=== PATIENT | female | born 1930 | race Caucasian/White ===

== ENCOUNTER 2017-03-07 15:13 | Outpatient (RCR) | payer OTHER ==
[~2017-03-07 15:13] MED LIST: ASPIRIN81 MG PO; COZAAR25 MG PO; DOXYCYCLINE MO100 MG PO; HYDROXYUREA500 MG PO; KEFLEX500 MG PO; LIDOCAINE VISC 2% SOLN 15 ML UDC ONE; LOSARTAN-HCTZ1 EAC1 PO; METOPROLOL SUCC50 MG PO; MINERAL OIL/PETROLAT/GLYCERI 6OZ BTL ONE; PLAVIX75 MG PO; ULTRAM50 MG PO; UREA; VITAMIN B-121000 MCG PO
== END 2017-03-09 ==
LOC: WCC 15:13
PROVIDERS: ATTEND Podiatrist Foot & Ankle Surgery
DX: I87.332 Chronic venous hypertension (idiopathic) with ulcer and inflammation of left lower extremity (principal); L89.623 Pressure ulcer of left heel, stage 3; L97.322 Non-pressure chronic ulcer of left ankle with fat layer exposed; L97.422 Non-pressure chronic ulcer of left heel and midfoot with fat layer exposed; S91.109A Unspecified open wound of unspecified toe(s) without damage to nail, initial encounter; I10 Essential (primary) hypertension; I87.2 Venous insufficiency (chronic) (peripheral); L25.1 Unspecified contact dermatitis due to drugs in contact with skin; R21 Rash and other nonspecific skin eruption; L84 Corns and callosities; D64.9 Anemia, unspecified; I25.84 Coronary atherosclerosis due to calcified coronary lesion; W22.8XXA Striking against or struck by other objects, initial encounter

== ENCOUNTER → 2017-04-09 | Outpatient (RCR) | payer OTHER ==
[~2017-04-09] MED LIST changes: +FENTANYL CITRATE/PF 100MCG/2 ML INJ ONE
== END ==
LOC: WCC 03-12 12:29
PROVIDERS: ATTEND Podiatrist Foot & Ankle Surgery
DX: I87.332 Chronic venous hypertension (idiopathic) with ulcer and inflammation of left lower extremity (principal); L89.623 Pressure ulcer of left heel, stage 3; L97.322 Non-pressure chronic ulcer of left ankle with fat layer exposed; L97.422 Non-pressure chronic ulcer of left heel and midfoot with fat layer exposed; S81.801A Unspecified open wound, right lower leg, initial encounter; S91.109A Unspecified open wound of unspecified toe(s) without damage to nail, initial encounter; R21 Rash and other nonspecific skin eruption; I87.2 Venous insufficiency (chronic) (peripheral); L25.1 Unspecified contact dermatitis due to drugs in contact with skin; L84 Corns and callosities; D64.9 Anemia, unspecified; I10 Essential (primary) hypertension; I25.84 Coronary atherosclerosis due to calcified coronary lesion; W22.8XXA Striking against or struck by other objects, initial encounter
CPT/HCPCS: 11042; 29581 ×2; G0463

== ENCOUNTER → 2017-05-07 | Outpatient (RCR) | payer OTHER ==
[~2017-05-07] MED LIST changes: -FENTANYL CITRATE/PF 100MCG/2 ML INJ ONE; +LIDOCAINE/PRILOCAINE 2.5-2.5% KIT ONE; -MINERAL OIL/PETROLAT/GLYCERI 6OZ BTL ONE
== END ==
LOC: WCC 04-16 12:26
PROVIDERS: ATTEND Podiatrist Foot & Ankle Surgery
DX: L89.623 Pressure ulcer of left heel, stage 3 (principal); I87.332 Chronic venous hypertension (idiopathic) with ulcer and inflammation of left lower extremity; L97.322 Non-pressure chronic ulcer of left ankle with fat layer exposed; S91.109A Unspecified open wound of unspecified toe(s) without damage to nail, initial encounter; I87.2 Venous insufficiency (chronic) (peripheral); L25.1 Unspecified contact dermatitis due to drugs in contact with skin; L84 Corns and callosities; R21 Rash and other nonspecific skin eruption; D64.9 Anemia, unspecified; I10 Essential (primary) hypertension; I25.84 Coronary atherosclerosis due to calcified coronary lesion; W22.8XXA Striking against or struck by other objects, initial encounter

== ENCOUNTER 2017-05-09 12:37 | Observation (INO) | payer OTHER ==
[~2017-05-09] VITALS: Ht 165.1 cm; Wt 54.5 kg
[~2017-05-09 12:37] MED LIST changes: -LIDOCAINE VISC 2% SOLN 15 ML UDC ONE; -LIDOCAINE/PRILOCAINE 2.5-2.5% KIT ONE
--- OUTSIDE RECORDS SUMMARY | 2017-05-09 12:40 | XMS REPORT | Clinical Summary ---
Author Author [facility] Organization [facility] Address Unknown Phone Unavailable Care Team Providers Care Mobile Home Technician Name Role Phone Pernell Painting MD PCP Allergies Active Allergy Reactions Severity Noted Date Comments Cefepime Other (See Comments) Medium 04/28/2016 UNKNOWN Ciprofloxacin Swelling 04/28/2016 Legs swelling Vancomycin 04/28/2016 Current Medications Prescription Sig. Disp. Refills Start End Date Status Date clopidogrel (PLAVIX) 75 Take 75 mg by mouth Active mg tablet nightly. hydroxyurea (HYDREA) 500 Take 1,000 mg by mouth Active mg capsule every other day. Take 1 capsule 1 day and 2 capsules the other. metoprolol succinate XL Take 50 mg by mouth 2 Active (TOPROL-XL) 50 mg 24 hr (two) times a day. tablet traMADol (ULTRAM) 50 mg Take 50 mg by mouth every Active tablet 6 (six) hours as needed for moderate pain. losartan-hydrochlorothiaz Take 1 tablet by mouth Active brian (HYZAAR) 100-25 mg nightly. per tablet hydroxyurea (HYDREA) 500 Take 500 mg by mouth Active mg capsule every other day. cyanocobalamin 1000 MCG Take 1,000 mcg by mouth 02/06/20 Discontin tablet daily. 17 ued losartan (COZAAR) 100 MG Take 100 mg by mouth 01/04/20 Discontin tablet daily. 17 ued doxycycline (VIBRAMYCIN) Take 100 mg by mouth 2 01/08/20 Discontin 100 MG capsule (two) times a day. 17 ued silver sulfadiazine Apply 1 g topically daily 25 g 0 02/12/20 (SILVADENE, SSD) 1 % for 7 days. 17 17 cream Active Problems Problem Noted Date PVD (peripheral vascular disease) 02/10/2017 Ulcer of foot 02/10/2017 Overview: pt attends wound clinic and has left foot wrapped with kerlix Hypertension 02/10/2017 Preoperative testing 02/07/2017 Encounters Date Type Specialty Care Team Description 02/07/2017 [facility] General Surgery Earnest De La Cruz MD Preoperative testing - Encounter Anthony Aguilar MD 02/10/2017 02/07/2017 Procedure Pass General Surgery 02/07/2017 Surgery General Surgery Earnest De La Cruz MD CREATION, BYPASS, ARTERIAL, FEMORAL-POPLITEAL LEFT 02/06/2017 Anesthesia General Surgery Yanci Mantilla MD Event 02/05/2017 [facility] Radiology Earnest De La Cruz MD Encounter 02/05/2017 Pre-Admit Pre-Admission Testing Earnest De La Cruz MD Preoperative testing Testing (Primary Dx) Appointment 01/07/2017 [facility] Radiology Earnest De La Cruz MD PVD ( peripheral vascular Encounter disease); Preop testing 01/07/2017 Ancillary Radiology Earnest De La Cruz MD PVD ( peripheral vascular Orders disease) 01/07/2017 Ancillary Access Earnest De La Cruz MD PVD (peripheral vascular Orders disease) 01/03/2017 [facility] Radiology Earnest De La Cruz MD Encounter 01/03/2017 Pre-Admit Pre-Admission Testing Earnest De La Cruz MD Preop testing (Primary Testing Dx) Appointment 10/31/2016 Transcribe Access Earnest De La Cruz MD PVD (peripheral vascular Orders disease) (Primary Dx) after 05/08/2016 Family History Medical History Relation Name Comments No Known Problems Father No Known Problems Mother Relation Name Status Comments Father Mother Social History Tobacco Use Types Packs/Day Years Used Date Former Smoker Cigarettes 1 Smokeless Tobacco: Never Used Comments: PT. STATES SHE STOPPED SMOKING 40 YEARS AGO. Alcohol Use Drinks/Week oz/Week Comments No Sex Assigned at Date Recorded Not on file Last Filed Vital Signs Vital Sign Reading Time Taken Blood Pressure 133/61 02/10/2017 7:43 AM CASTER HELPER Pulse 79 02/10/2017 7:43 AM CASTER HELPER Temperature 36.6 C (97.8 F) 02/10/2017 7:43 AM CASTER HELPER Respiratory Rate 18 02/10/2017 7:43 AM CASTER HELPER Oxygen Saturation 93% 02/10/2017 7:43 AM CASTER HELPER Inhaled Oxygen - - Concentration Weight 56.1 kg (123 lb 11.2 oz) 02/07/2017 12:00 PM CASTER HELPER Height 167.6 cm (5' 6") 02/07/2017 6:52 AM CASTER HELPER Body Mass Index 19.97 02/07/2017 12:00 PM CASTER HELPER Plan of Treatment Health Maintenance Due Date Last Done Comments ZOSTER VACCINE 1989 PNEUMOCOCCAL 1994 POLYSACCHARIDE VACCINE AGE 65 AND OVER PNEUMOCOCCAL-13 1994 INFLUENZA VACCINE 10/08/2016 Implants Implanted Type Area Test Facility Engineer Device Expiration Model / Identifier Date Serial / Lot Device Vasclr Clsr Baln Cath 10ml Cardiovasc N/A: N/A ACCESS CLOSURE 02/06/2018 [id number] / Lkng Syr 5fr [employer] / [id number] Implants Implanted: Qty: 1 on 04/29/2016 Device Vasclr Clsr Baln Cath 10ml Cardiovasc N/A: N/A ACCESS CLOSURE [id number] / Lkng Syr 5fr [employer] / [id number] Implants Implanted: 01/07/2017 (Quantity not on file) [employer] Periph [id number] - Vascular N/A: N/A BARD PERIPHERAL 2019 [id number] / [id number] Graft VASCULAR / Implanted: Qty: 1 on 02/07/2017 by [id number] Earnest De La Cruz MD [employer] Carboflo Str [id number] - Vascular Left: BARD PERIPHERAL 2018 [id number] / [id number] Graft Artery, VASCULAR / Implanted: Qty: 1 on 02/07/2017 by Femoral [id number] Earnest De La Cruz MD Procedures Procedure Name Priority Date/Time Associated Diagnosis Comments OK AN ELECTIVE Routine 02/07/2017 ENDOTRACHEAL AIRWAY 11:20 AM CASTER HELPER Procedure Note - Demetris Cope CRNA - 02/07/2017 9:06 AM CASTER HELPER Airway Date/Time: 02/07/2017 8:29 AM Performed by: DEMETRIS COPE Authorized by: YANCI MANTILLA Location: OR Urgency: Elective Difficult Airway: No Anesthesio logist: YANCI MANTILLA/C CHAITANYA/AA: DEMETRIS COPE Performed by: resident/C CHAITANYA and resident/C CHAITANYA/HIRO Preoxygena jessica with 100% O2: Yes C-spine Precaution s Maintained Throughout : Yes Mask Ventilatio n: Easy mask Final Airway Type: Endotrache al airway Final Endotrache al Airway: ETT Cuffed: Yes Technique Used: Direct laryngosco py Insertion Site: Oral Blade Type: Lim Laryngosco pe Blade/Vide olaryngosc ope Blade Size: 2 ETT Size (mm): 7.0 Cuff at minimum occlusion pressure: Yes Measured from: Lips ETT to Lips (cm): 21 Placement Verified by: CO2 detection, direct visualizat ion and equal breath sounds Laryngosco pic view: Grade IIa - partial view of glottis Rapid Sequence Induction (RSI): No Modified RSI: No Number of Attempts at Approach: 1 Teeth intact, atraumatic intubation ARTERIAL LINE Routine 02/07/2017 10:40 AM CASTER HELPER Procedure Note - Demetris Cope CRNA - 02/07/2017 10:39 AM CASTER HELPER Arterial line Performed by: DEMETRIS COPE Authorized by: YANCI MANTILLA Patient Location: OR Start Time: 02/07/2017 8:35 AM End Time: 02/07/2017 8:40 AM Staff: /Claudio TAVARES/AA: DEMETRIS COPE Performed by: /Claudio TAVARES/HIRO Pre-proced ure: patient identified , IV checked, site and side verified, risks and benefits discussed, procedure verified, surgical consent complete, patient position confirmed, monitors and equipment checked and pre-op evaluation complete MSBT: antiseptic used, all elements of maximal sterile barrier technique followed, hand hygiene performed, cap/gown used by other personnel and solutions labeled Indication s: Indication s: hemodynami c monitoring Anesthesia : Anesthesia : General Procedure Details: Arterial Line placement: Placed post induction Line placement site: Radial Line placement side: Right Arterial line gauge: 20 G Number of attempts: 2 Ultrasound guidance used: No Post-proce dure: Post-proce dure: Sterile dressing applied Post procedure circulatio n, sensation, movement: Normal Patient tolerance: Patient tolerated the procedure well with no immediate complicati ons CREATION, BYPASS, 02/07/2017 PVD ARTERIAL, 8:15 AM CASTER HELPER FEMORAL-POPLITEAL LEFT Special Needs Needs: CELL SAVER/ ASSISTANTR EGULAR GRAFTSPOKE WITH CHINTAN HALL - BW after 05/08/2016 Results * Estimated GFR (02/08/2017 4:20 AM) Only the most recent of 3 results within the time period is included. Component Value Ref Range GFR Non Af Amer 79 mL/min/1.73 m2 GFR Af Amer >90 mL/min/1.73 m2 Comment: Chronic kidney disease: <60 mL/min/1.73m2 Kidney failure: <15 mL/min/1.73m2 The estimated GFR is calculated from the IDMS-traceable Modification of Diet in Renal Disease Equation. The accuracy of the calculation is poor when the creatinine is normal. Calculated values >90 mL/min/1.73m2 are not reported. This equation has not been validated in children (<18 years), women, the elderly (>70 years), or ethnic groups other than Caucasians and Americans. Specimen Performing Laboratory Plasma specimen [facility] DEPARTMENT OF PATHOLOGY AND GENOMIC MEDICINE [address] [place] [address] * CBC with platelet and differential (02/08/2017 4:20 AM) Only the most recent of 3 results within the time period is included. Component Value Ref Range WBC 5.31 4.50 - 11.00 k/uL RBC 2.25 (L) 4.20 - 5.50 m/uL HGB 9.4 (L) 12.0 - 16.0 g/dL HCT 27.6 (L) 37.0 - 47.0 % MCV 122.7 (H) 82.0 - 100.0 fL MCH 41.8 (H) 27.0 - 34.0 pg MCHC 34.1 31.0 - 37.0 g/dL RDW - SD 61.0 (H) 37.0 - 55.0 fL MPV 8.9 8.8 - 13.2 fL Platelet count 325 150 - 400 k/uL Nucleated RBC 0.00 /100 WBC Neutrophils 78.1 (H) 39.0 - 69.0 % Lymphocytes 11.5 (L) 25.0 - 45.0 % Monocytes 9.0 0.0 - 10.0 % Eosinophils 0.6 0.0 - 5.0 % Basophils 0.2 0.0 - 1.0 % Immature granulocytes 0.6Comment: "Immature granulocytes" 0.0 - 1.0 % (promyelocytes, myelocytes, metamyelocytes) Specimen Performing Laboratory Blood [facility] DEPARTMENT OF PATHOLOGY AND GENOMIC MEDICINE [address] [place] [address] * Basic metabolic panel (02/08/2017 4:20 AM) Only the most recent of 3 results within the time period is included. Component Value Ref Range Sodium 134 (L) 135 - 148 mEq/L Potassium 3.7 3.5 - 5.0 mEq/L Chloride 94 (L) 98 - 112 mEq/L CO2 31 24 - 31 mEq/L Anion gap 9 7 - 15 mEq/L Comment: Starting from June , anion gap calculation no longer incorporates potassium. Please note the change. BUN 17 8 - 23 mg/dL Creatinine 0.7 0.5 - 0.9 mg/dL Glucose 128 (H) 65 - 99 mg/dL Calcium 8.7 (L) 8.8 - 10.2 mg/dL Specimen Performing Laboratory Plasma specimen [facility] DEPARTMENT OF PATHOLOGY AND GENOMIC [facility] [address] [place] [address] * XR Ankle 3+ Vw Left (02/07/2017 9:09 PM) Specimen Performing Laboratory [facility] [address] [place] [address] Addenda Addendum by Mati Ferrari MD on 02/08/2017 5:15 PM ADDENDUM #1 Under impression, the first sentence should read:" The bones are moderately osteopenic" Narrative EXAMINATION:XR ANKLE 3VW LEFT CLINICAL HISTORY:ANKLE PAINNO XRAY COMPARISON:None. IMPRESSION: Lungs are moderately osteopenic. There is no evidence of fracture or dislocation. [facility]-[id number] Procedure Note Interface, Radiology Results Incoming - 02/07/2017 9:16 PM CASTER HELPER EXAMINATION: XR ANKLE 3 VW LEFT CLINICAL HISTORY: ANKLE PAIN NO XRAY COMPARISON: None. IMPRESSION: Lungs are moderately osteopenic. There is no evidence of fracture or dislocation. [facility]-[id number] * XR Chest 1 Vw Portable (02/07/2017 9:09 PM) Specimen Performing Laboratory [facility] [address] [place] [address] Narrative EXAMINATION:XR CHEST 1 VW PORTABLE CLINICAL HISTORY:COPD Emphysema COMPARISON:To previous study from 02/05/2017 IMPRESSION: The heart is normal in appearance and the lungs are hyperinflated without evidence of congestion or consolidation. Mild thoracal lumbar scoliosis is present. [facility]-[id number] Procedure Note Interface, Radiology Results Incoming - 02/07/2017 9:14 PM CASTER HELPER EXAMINATION: XR CHEST 1 VW PORTABLE CLINICAL HISTORY: COPD Emphysema COMPARISON: To previous study from 02/05/2017 IMPRESSION: The heart is normal in appearance and the lungs are hyperinflated without evidence of congestion or consolidation. Mild thoracal lumbar scoliosis is present. [facility]-[id number] * POC glucose (02/07/2017 8:29 PM) Component Value Ref Range POC glucose 181 (H) 65 - 99 mg/dL Comment: Meter ID: [id number] Graphic Production Artist: Kareem Soria Specimen Performing Laboratory [facility] DEPARTMENT OF PATHOLOGY AND GENOMIC MEDICINE [id number] [place] [address] [place] [address] * OR [place] > I Hour (02/07/2017 10:45 AM) Specimen Performing Laboratory [facility] [address] [place] [address] Narrative EXAMINATION:OR [place] 1 HOUR C-arm fluoroscopy was requested in OR.FLUORO TIME 0:36 IMPRESSION: Separate operative report will be issued by the physician performing the procedure. [id number] Procedure Note Interface, Radiology Results Incoming - 02/07/2017 11:37 AM CASTER HELPER EXAMINATION: OR FL 1 HOUR C-arm fluoroscopy was requested in OR. FLUORO TIME 0:36 IMPRESSION: Separate operative report will be issued by the physician performing the procedure. [id number] * XR Chest 2 Vw (02/05/2017 8:10 AM) Only the most recent of 2 results within the time period is included. Specimen Performing Laboratory [facility] [address] [place] [address] Narrative EXAMINATION:XR CHEST 2 VW CLINICAL HISTORY:Z01.818 Encounter for other preprocedural examination, PREOP COMPARISON:January 03, 2017 FINDINGS: Heart size appears normal. The mediastinum is unremarkable. The lungs appear clear. There is mild scoliosis of the thoracic spine convex to the right. IMPRESSION: No acute findings are visualized [id number] Procedure Note Interface, Radiology Results Incoming - 02/05/2017 8:48 AM CASTER HELPER EXAMINATION: XR CHEST 2 VW CLINICAL HISTORY: Z01.818 Encounter for other preprocedural examination, PREOP COMPARISON: January 03, 2017 FINDINGS: Heart size appears normal. The mediastinum is unremarkable. The lungs appear clear. There is mild scoliosis of the thoracic spine convex to the right. IMPRESSION: No acute findings are visualized [id number] * Partial thromboplastin time, activated (02/05/2017 7:09 AM) Only the most recent of 2 results within the time period is included. Component Value Ref Range PTT 38.3 (H) 23.0 - 36.0 sec Comment: PTT therapeutic range for unfractionated heparin is 61.0-112.0 seconds which corresponds to Anti-Xa 0.3-0.7 U/ml. Specimen Performing Laboratory Blood [facility] DEPARTMENT OF PATHOLOGY AND GENOMIC MEDICINE [address] [place] [address] [place] [address] * Prothrombin time with INR (02/05/2017 7:09 AM) Only the most recent of 2 results within the time period is included. Component Value Ref Range Prothrombin time 14.5 12.0 - 15.0 sec INR 1.1 Comment: The International Normalized Ratio (INR) is a therapeutic monitoring tool for patients who are stable on oral anticoagulant therapy. An INR of 2.0-3.0 is suggested for deep vein thrombosis/pulmonary embolism. Specimen Performing Laboratory Blood [facility] DEPARTMENT OF PATHOLOGY AND GENOMIC MEDICINE [id number] [place] [address] [place] [address] * Type and screen (02/05/2017 7:09 AM) Only the most recent of 2 results within the time period is included. Component Value Ref Range ABO grouping O Rh type POS Antibody screen NEG Specimen Performing Laboratory Blood [facility] DEPARTMENT OF PATHOLOGY AND [facility] MEDICINE [address] [place] [address] [place] [address] * IR Angiogram Extremity Left (01/07/2017 10:59 AM) Specimen Performing Laboratory [facility] [address] [place] [address] Narrative PROCEDURE:IR ANGIOGRAM EXTREMITY LEFT This exam was performed in the Radiology department. Fluoro time:3 minutes 27 seconds. IMPRESSION: A complete separate report will be issued in operative notes by the performing physician. [id number] Procedure Note Hm Interface, Radiology Results Incoming - 01/08/2017 11:32 AM CDT PROCEDURE: IR ANGIOGRAM EXTREMITY LEFT This exam was performed in the Radiology department. Fluoro time: 3 minutes 27 seconds. IMPRESSION: A complete separate report will be issued in operative notes by the performing physician. [id number] * US Guided Vascular Access (01/07/2017 10:59 AM) Specimen Performing Laboratory [facility] [address] [place] [address] Narrative PROCEDURE:US GUIDED VASCULAR ACCESS This exam was performed in the Radiology department. IMPRESSION: A complete separate report will be issued in operative notes by the performing physician. [id number] Procedure Note Hm Interface, Radiology Results Incoming - 01/08/2017 11:32 AM CDT PROCEDURE: US GUIDED VASCULAR ACCESS This exam was performed in the Radiology department. IMPRESSION: A complete separate report will be issued in operative notes by the performing physician. [id number] * ECG 12 lead (01/03/2017 8:03 AM) Component Value Ref Range Ventricular rate 61 Atrial rate 61 OK interval 188 QRSD interval 90 QT interval 430 QTC interval 432 P axis 1 88 QRS axis 1 65 T wave axis 70 EKG impression Normal sinus rhythm-Normal ECG-In automated comparison with ECG of -APR-2016 17:15,-No significant change was found- Specimen Performing Laboratory [facility] [address] [place] [address] after 05/08/2016 Insurance Payer Benefit Subscriber ID Type Phone Address Plan / Group [employer] TEX[employer] xxxxxxxxx O [facility]
--- OUTSIDE RECORDS SUMMARY | 2017-05-09 12:41 | XMS REPORT ---
Author [facility] Address Unknown Phone Unavailable Care Team Providers Care Slot Attendant Name Role Phone MAYA WU Unavailable Unavailable Problems This patient has no known problems. Allergies, Adverse Reactions, Alerts This patient has no known allergies or adverse reactions. Medications This patient has no known medications. Results Test Description Test Time Test Comments Text Results Atomic Results Result Comments CHEST 2 VIEWS [facility] [address] [address] Patient Name: CHRISTOS MCCURDY MR #: [id number] : 1930 Age/Sex: 87/F Req # : [id number] [facility] Physician: Ordered by: MAYA WU DP Report # : [id number] Location: OR Room/Bed: Procedure: [id number] DX/CHEST 2 VIEWS Exam Date: 02/10/17 Exam Time : 1805 REPORT STATUS: Signed PROCEDURE: Frontal and lateral views of the chest. COMPARISON: Chest 2 views 08/12/2016. INDICATIONS: pre=- op FINDINGS: Lines/tubes: None. Lungs: The lungs are well inflated and clear. There is no evidence of pneumonia or pulmonary edema. Pleura: There is no pleural effusion or pneumothorax. Heart and mediastinum: The heart and the mediastinum are normal. Atherosclerotic calcifications. Bones: No acute bony abnormality. Degenerative changes of the thoracic spine. IMPRESSION: No acute radiographic abnormality. Dictated by: Cordelia Hassan M.D. on 02/10/2017 at 18:37 Electronically approved by: Cordelia Hassan M.D. on 02/10/2017 at 18:37 Dictated By: CORDELIA HASSAN MD 36 Transcribed By: TREVIN on 02/10/171836 COPY TO: MAYA WU DPM
--- OUTSIDE RECORDS SUMMARY | 2017-05-09 12:41 | XMS REPORT | Continuity of Care Document ---
Author Author [facility] Organization [facility] Address [address] [place] [address] Phone Unavailable Care Team Providers Care Rail Car Unloader Name Role Phone DILCIA COLUNGA MD PCP Insurance Providers Guarantor Klaudia Mccurdy Address [address] [place] [address] Email PTDECLINED Payer [facility] Plus Policy Number [id number] Subscriber's Name Klaudia Mccurdy Relationship 18 Self / Same As Patient Group Number [id number] Group Name [facility] - Medicare Advantage Divis Effective Date 17 Advance Directives Directive Response Recorded Date/Time Does the patient have an advance directive? No 12/18/16 2:39pm If yes, is advance directive on file with [facility]? No 08/18/13 3:15am If not on file with [facility] will patient provide a copy? No 08/18/13 3:15am Do you have a Directive to Physician? No 04/15/17 2:15pm Do you have a Medical Power of Dope Mixer? No 04/15/17 2:15pm Do you have an out of hospital Do Not Resuscitate Order? No 04/15/17 2:15pm Do you have any special needs we should be aware of? No 04/15/17 2:15pm Do you have a support person here with you today? No 04/15/17 2:15pm Did patient receive Notice of Privacy Practices? Yes 04/15/17 2:15pm Did patient receive patient rights and responsibilities? Yes 04/15/17 2:15pm Problems No problem information available. Medications Current Home Medications Medication Dose Units Route Directions Days Qty Instructions Start Date Clopidogrel Bisulfate (Plavix) 75 Mg Tablet 75 Mg Oral Daily 30 Tab Hydroxyurea 500 Mg Capsule 500 Mg Oral Daily Losartan/Hydrochlorothiazide (Losartan-Hctz 100-25 Mg Tab) 1 Each Tablet Oral Bedtime Metoprolol Succinate 50 Mg Tab.er.24h 50 Mg Oral Twice A Day Tramadol Hcl (Ultram) 50 Mg Tablet 50 Mg Oral Every 6 Hours as needed for Pain Past Home Medications Medication Directions Ordered Status Aspirin 81 Mg Tab.chew, 81 Mg Oral Daily Discontinued Cephalexin Monohydrate (Keflex) 500 Mg Capsule, 500 Mg Oral Twice A Day Discontinued Cyanocobalamin (Vitamin B-12) 1,000 Mcg Tab, 5000 Mcg Oral Daily Discontinued Doxycycline Monohydrate 100 Mg Capsule, 100 Mg Oral Twice A Day Discontinued Losartan Potassium (Cozaar) 25 Mg Tablet, 50 Mg Oral Every 12 Hours Discontinued Urea (Urea 40) 15 Ml Gel..ml., Discontinued Social History Social History Problem Response Recorded Date/Time Onset Date Status Hx Psychiatric Problems No 12/18/2016 2:39pm Not Applicable Not Applicable Hx Eating Disorder No 12/18/2016 2:39pm Not Applicable Not Applicable Hx Substance Use Disorder No 12/18/2016 2:39pm Not Applicable Not Applicable Hx Depression No 12/18/2016 2:39pm Not Applicable Not Applicable Hx Alcohol Use No 12/18/2016 2:39pm Not Applicable Not Applicable Hx Substance Use Treatment No 12/18/2016 2:39pm Not Applicable Not Applicable Hx Physical Abuse No 12/18/2016 2:39pm Not Applicable Not Applicable Hospital Discharge Instructions No hospital discharge instruction information available. Plan of Care Prescriptions See Medication Section Functional Status No functional status information available. Allergies, Adverse Reactions, Alerts Allergen Type Severity Reaction Status Last Updated Erythromycin base Allergy Unknown Active 08/13/16 Sulfamethoxazole Allergy Unknown Active 08/13/16 Trimethoprim Allergy Unknown Active 08/13/16 Vancomycin Allergy Unknown Active 08/13/16 Immunizations No immunization information available. Vital Signs Acute Vital Signs Vital Response Date/Time Temperature (Fahrenheit) 97.8 degrees F (97.6 - 99.5) 12/24/2016 5:12am Pulse Pulse Rate (adult) 61 bpm (60 - 90) 12/24/2016 5:12am Respiratory Rate 17 bpm (12 - 24) 12/24/2016 5:12am Blood Pressure 145/69 mm Hg 12/24/2016 5:12am Results Laboratory Results Test Name Result Units Flags Reference Collection Date/Time Result Date/ Time Comments Erythrocyte Sedimentation Rate 101 mm/hr H 0-20 12/18/2016 5:45pm 2016 7:10pm Prothrombin Time 15.5 seconds H 11.9-14.5 12/23/2016 11:09am 12/23/2016 11:31am Prothromb Time International Ratio 1.17 12/23/2016 11:09am 2016 11:31am Oral Anticoagulant Therapy INR Values: 1. Low Intensity Therapy 1.5 - 2.0 2. Moderate Intensity Therapy 2.0 - 3.0 3. High Intensity Therapy(1) 2.5 - 3.5 4. High Intensity Therapy(2) 3.0 - 4.0 5. Panic Value INR > 5.0 Activated Partial Thromboplast Time 33.6 seconds 23.8-35.5 12/23/2016 11 :09am 12/23/2016 11:31am Sodium Level 137 mmol/L 136-145 12/22/2016 6:2112/22/2016 7:11am Potassium Level 3.9 mmol/L 3.5-5.1 12/22/2016 6:2112/22/2016 7:11am Chloride Level 101 mmol/L 98-107 12/22/2016 6:2112/22/2016 7:11am Carbon Dioxide Level 29 mmol/L 22-12/22/2016 6:2112/22/2016 7: 11am Anion Gap 10.9 mmol/L 8-12/22/2016 6:2112/22/2016 7:11am Blood Urea Nitrogen 10 mg/dL 7-12/22/2016 6:2112/22/2016 7:11am Creatinine 0.79 mg/dL 0.57-1.11 12/22/2016 6:21am 12/22/2016 7:11am BUN/Creatinine Ratio 13 6-25 12/22/2016 6:21am 12/22/2016 7:11am Estimat Glomerular Filtration Rate > 60 ML/MIN 60- 12/22/2016 6:21 7:11am Ranges were taken from the National Kidney Disease Education Program and the National Kidney Foundation literature. Reference ranges: 60 or greater: Normal 16-59 (for 3 consecutive months): Chronic kidney disease 15 or less: Kidney failure Glucose Level 116 mg/dL 74-118 12/22/2016 6:2112/22/2016 7:11am Calcium Level 9.0 mg/dL 8.4-10.2 12/22/2016 6:21am 12/22/2016 7:11am White Blood Count 8.05 x10e3/uL 4.8-10.8 02/10/2017 4:58pm 02/10/2017 5 :13pm Red Blood Count 2.51 x10e6/uL L 3.6-5.1 02/10/2017 4:58pm 02/10/2017 5: 13pm Hemoglobin 10.4 g/dL L 12.0-16.0 02/10/2017 4:58pm 02/10/2017 5:13pm Hematocrit 31.0 % L 34.2-44.1 02/10/2017 4:58pm 02/10/2017 5:13pm Mean Corpuscular Volume 123.5 fL H 81-99 02/10/2017 4:58pm 02/10/2017 5: 13pm Mean Corpuscular Hemoglobin 41.4 pg H 28-32 02/10/2017 4:58pm 2016 5:13pm Mean Corpuscular Hemoglobin Concent 33.5 g/dL 31-35 02/10/2017 4:58pm 02/10/2017 5:13pm Red Cell Distribution Width 13.2 % 11.7-14.4 02/10/2017 4:58pm 2016 5:13pm Platelet Count 398 x10e3/uL H 140-360 02/10/2017 4:58pm 02/10/2017 5: 13pm Neutrophils (%) (Auto) 76.9 % 38.7-80.0 02/10/2017 4:58pm 02/10/2017 5: 13pm Lymphocytes (%) (Auto) 10.3 % L 18.0-39.1 02/10/2017 4:58pm 02/10/2017 5 :13pm Monocytes (%) (Auto) 9.6 % 4.4-11.3 02/10/2017 4:58pm 02/10/2017 5: 13pm Eosinophils (%) (Auto) 2.1 % 0.0-6.0 02/10/2017 4:58pm 02/10/2017 5: 13pm Basophils (%) (Auto) 0.4 % 0.0-1.0 02/10/2017 4:58pm 02/10/2017 5:13pm IM GRANULOCYTES % 0.7 % 0.0-1.0 02/10/2017 4:58pm 02/10/2017 5:13pm Neutrophils # (Auto) 6.2 2.1-6.9 02/10/2017 4:58pm 02/10/2017 5:13pm Lymphocytes # (Auto) 0.8 L 1.0-3.2 02/10/2017 4:58pm 02/10/2017 5: 13pm Monocytes # (Auto) 0.8 0.2-0.8 02/10/2017 4:58pm 02/10/2017 5:13pm Eosinophils # (Auto) 0.2 0.0-0.4 02/10/2017 4:58pm 02/10/2017 5:13pm Basophils # (Auto) 0.0 0.0-0.1 02/10/2017 4:58pm 02/10/2017 5:13pm Absolute Immature Granulocyte (auto 0.06 x10e3/uL 0-0.1 02/10/2017 4: 58pm 02/10/2017 5:13pm Procedures Procedure Status Date Provider(s) ALISON BONE 20 SQ CM/< Completed 08/13/16 MAYA UW DPM SKIN SUB GRAFT FACE/NK/HF/G Completed 08/13/16 MAYA WU DPM ALISON BONE 20 SQ CM/< Completed 02/11/17 MAYA WU DPM SKIN SUB GRAFT TRNK/ARM/LEG Completed 02/11/17 MAYA WU DPM X-ray of chest, two views Active 08/12/16 MAYA WU DPM X-ray of chest, two views Active 02/10/17 MAYA WU DPM Encounters Encounter Location Arrival/Admit Date Discharge/Depart Date Attending Provider Discharged [facility] 05/07/17 12:00pm 11:59pm MAYA WU DPM Discharged [facility] 03/12/17 12:29pm 11:59pm MAYA WU DPM Discharged [facility] 02/19/17 12:00pm 11:59pm MAYA WU DPM Registered Surgical Day Care [facility] 02/11/17 5:36am MAYA WU DPM Discharged [facility] 01/08/17 12:25pm 11:59pm MAYA WU DPM Discharged Inpatient [facility] 12/18/16 1:33pm 12/24/16 11:30am CORDELIA BARCENAS MD Discharged [facility] 12/18/16 11:50am 11:59pm MAYA WU DPM Discharged [facility] 11/13/16 1:33pm 12/07/16 11:59pm MAYA WU DPM Discharged [facility] 10/09/16 12:51pm 11:59pm MAYA WU DPM Discharged [facility] 09/11/16 12:01pm 11:59pm MAYA WU DPM Discharged [facility]ring [facility] 08/14/16 12:00pm 11:59pm MAYA WU DPM Registered Surgical Day [facility] 08/13/16 7:25am MAYA WU DPM Discharged [facility] 07/10/16 12:02pm 11:59pm MAYA WU DPM
[2017-05-09 15:31] LABS: BASOPHILS % 0.7 % (0.0-1.0); EOSINOPHILS # (AUTO) 0.1 (0.0-0.4); EOSINOPHILS % 1.5 % (0.0-6.0); HEMATOCRIT 35.3 % (34.2-44.1); HEMOGLOBIN 11.8 g/dL (12.0-16.0); LYMPHOCYTES # (AUTO) 0.9 (1.0-3.2); LYMPHOCYTES % 19.5 % (18.0-39.1); MEAN CORPUSCULAR HGB CONC 33.4 g/dL (31-35); MEAN CORPUSCULAR VOLUME 119.7 fL (81-99); MONOCYTES # (AUTO) 0.3 (0.2-0.8); MONOCYTES % 7.5 % (4.4-11.3); NEUTROPHILS # (AUTO) 3.2 (2.1-6.9); NEUTROPHILS % 70.1 % (38.7-80.0); PLATELET COUNT 291 x10e3/uL (140-360); RED BLOOD COUNT 2.95 x10e6/uL (3.6-5.1); RED CELL DISTRIBUTION WIDTH 15.6 % (11.7-14.4)
[2017-05-09 15:34] LABS: BILIRUBIN,URINE NEGATIVE (NEGATIVE); CLARITY,URINE CLEAR (CLEAR); COLOR,URINE YELLOW (YELLOW); KETONES,URINE NEGATIVE (NEGATIVE); LEUKOCYTE ESTERASE ,URINE 1+ (NEGATIVE); NITRITE,URINE NEGATIVE (NEGATIVE); PROTEIN,URINE DIPSTICK NEGATIVE (NEGATIVE); URINE UROBILINOGEN 0.2 mg/dL (0.2 - 1)
[2017-05-09 15:53] LABS: ALANINE AMINOTRANSFERASE 15 IU/L (0-55); ALBUMIN 3.7 g/dL (3.5-5.0); ALBUMIN/GLOBULIN RATIO 0.9 (0.8-2.0); ALKALINE PHOSPHATASE 93 IU/L (40-150); ANION GAP 14.2 mmol/L (8-16); BLOOD UREA NITROGEN 27 mg/dL (7-26); BUN/CREATININE RATIO 31 (6-25); CALCIUM 9.5 mg/dL (8.4-10.2); CARBON DIOXIDE 31 mmol/L (22-29); CHLORIDE 98 mmol/L (98-107); CREATININE, SERUM 0.88 mg/dL (0.57-1.11); EST GLOMERULAR FILTRATION RATE > 60 ML/MIN (60-); GLUCOSE 89 mg/dL (74-118); POTASSIUM 3.2 mmol/L (3.5-5.1); SODIUM 140 mmol/L (136-145)
[2017-05-09 16:03] LABS: RBC,URINE 0-5 /HPF (0-5); WBC,URINE (MAN) 0-5 /HPF (0-5)
[2017-05-09 16:04] LABS: EPITHELIAL CELLS,URINE MODERATE /LPF
[2017-05-09 19:59] LABS: INR 1.1; PROTHROMBIN TIME 13.4 seconds (11.9-14.5)
[2017-05-09 20:00] LABS: PARTIAL THROMBOPLASTIN TIME 35.4 seconds (23.8-35.5)
[2017-05-09 20:16] LABS: CREATINE KINASE MB 3.8 ng/mL (0-5.0)
--- NOTE | 2017-05-09 22:01 | Diagnostic Imaging Report ---
EXAM: CT ABDOMEN AND PELVIS with IV CONTRAST DATE: 05/09/2017 7:47 PM Time stamp on Exam: 2106 hours INDICATION: Abdominal pain, distention COMPARISON: None TECHNIQUE: The abdomen and pelvis were scanned using a multidetector helical scanner. Coronal and sagittal reformations were obtained. Routine protocol performed. IV Contrast: 100 cc Isovue-370 Oral Contrast: Water CTDIvol has been reviewed. It is below the limits set by the Radiation Protocol Committee (RPC). FINDINGS: LOWER THORAX: No consolidations LIVER: No masses BILIARY: The gallbladder is unremarkable. No ductal dilation. SPLEEN: No masses PANCREAS: No masses ADRENALS: No nodules KIDNEYS: Mild prominence of the bilateral upper collecting systems without hydroureter, right greater than left, likely due to mild ureteropelvic junction obstruction. Prior report in 2014 describes bilateral extrarenal pelvis, which likely reflects the same process. Images are not available at this time for comparison. GI TRACT: No distention, wall thickening or evidence of obstruction. Sigmoid colon diverticulosis. VESSELS: Advanced atherosclerotic changes. PERITONEUM/RETROPERITONEUM: No free air or fluid LYMPH NODES: No lymphadenopathy REPRODUCTIVE ORGANS: Uterus not visualized. No adnexal masses. BLADDER: Distended SOFT TISSUES: Unremarkable BONES: No suspicious bone lesions. IMPRESSION: Distended bladder, otherwise no acute findings. Signed by: Dr. Kacy Mmoin M.D. on 05/09/2017 9:57 PM
[2017-05-09] MEDS ORDERED: SODIUM CHLORIDE 0.9% 50ML 50 ML ONE (22:04)
[2017-05-09] MEDS ORDERED: IOPAMIDOL 370 MG/ML 200 ML INFUS..BTL INJ ONE (22:05)
--- NOTE | 2017-05-09 22:30 | Diagnostic Imaging Report ---
EXAM: CHEST SINGLE (PORTABLE), AP 1 view INDICATION: Abdominal pain, indigestion COMPARISON: None FINDINGS: LINES/TUBES: None LUNGS: No consolidations or edema. Nodular density projected over the left suprahilar location. PLEURA: No effusions or pneumothorax. HEART AND MEDIASTINUM: Normal size and contour. BONES AND SOFT TISSUES: No acute findings. IMPRESSION: Nodular density projected over the left suprahilar location is suspected to represent overlapping vessels. An upright PA and lateral view of the chest is recommended when clinically feasible. Otherwise, unremarkable AP view of the chest. Signed by: Dr. Kacy Momin M.D. on 05/09/2017 10:25 PM
[2017-05-09] MEDS ORDERED: ONDANSETRON HCL INJ 2 MG/ML VIAL IV STA (22:50)
[2017-05-09] MEDS ORDERED: MORPHINE SULFATE 2 MG/ML SYR IV STA (22:50)
[2017-05-09] MEDS ORDERED: SODIUM CHLORIDE 0.9% 1000ML 1,000 ML IV SCH (22:55)
[2017-05-09] MEDS ORDERED: MORPHINE SULFATE 2 MG/ML SYR IV PRN (23:00)
[2017-05-09] MEDS ORDERED: ONDANSETRON HCL INJ 2 MG/ML VIAL IV PRN (23:00)
--- OUTSIDE RECORDS SUMMARY | 2017-05-09 23:19 | XMS REPORT | Clinical Summary ---
Author Author [facility] Organization [facility] Address Unknown Phone Unavailable Care Team Providers Care Coin Purse Framer Name Role Phone Pernell Painting MD PCP [...] Date Type Specialty Care Team Description 02/07/2017 [facility] General Surgery Earnest De La Cruz MD Preoperative testing - Encounter Anthony Aguilar MD 02/10/2017 02/07/2017 Procedure Pass General Surgery 02/07/2017 Surgery General Surgery Earnest De La Cruz MD CREATION, BYPASS, ARTERIAL, FEMORAL-POPLITEAL LEFT 02/06/2017 Anesthesia General Surgery Yanci Mantilla MD Event 02/05/2017 [facility] Radiology Earnest De La Cruz MD Encounter 02/05/2017 Pre-Admit Pre-Admission Testing Earnest De La Cruz MD Preoperative testing Testing (Primary Dx) Appointment 01/07/2017 [facility] Radiology Earnest De La Cruz MD PVD ( peripheral vascular Encounter disease); Preop testing 01/07/2017 Ancillary Radiology Earnest De La Cruz MD PVD ( peripheral vascular Orders disease) 01/07/2017 Ancillary Access Earnest De La Cruz MD PVD (peripheral vascular Orders disease) 01/03/2017 [facility] Radiology Earnest De La Cruz MD [...] Taken Blood Pressure 133/61 02/10/2017 7:43 AM ROTATING EQUIPMENT ENGINEER Pulse 79 02/10/2017 7:43 AM ROTATING EQUIPMENT ENGINEER Temperature 36.6 C (97.8 F) 02/10/2017 7:43 AM ROTATING EQUIPMENT ENGINEER Respiratory Rate 18 02/10/2017 7:43 AM ROTATING EQUIPMENT ENGINEER Oxygen Saturation 93% 02/10/2017 7:43 AM ROTATING EQUIPMENT ENGINEER Inhaled Oxygen - - Concentration Weight 56.1 kg (123 lb 11.2 oz) 02/07/2017 12:00 PM ROTATING EQUIPMENT ENGINEER Height 167.6 cm (5' 6") 02/07/2017 6:52 AM ROTATING EQUIPMENT ENGINEER Body Mass Index 19.97 02/07/2017 12:00 PM ROTATING EQUIPMENT ENGINEER Plan of Treatment Health Maintenance Due Date Last Done Comments ZOSTER VACCINE 1989 PNEUMOCOCCAL 1994 POLYSACCHARIDE VACCINE AGE 65 AND OVER PNEUMOCOCCAL-13 1994 INFLUENZA VACCINE 10/08/2016 Implants Implanted Type Area Sewer And Inspector Device Expiration Model / Identifier Date Serial / Lot Device Vasclr Clsr Baln Cath 10ml Cardiovasc N/A: N/A ACCESS CLOSURE 02/06/2018 [id number] / Lkng Syr 5fr Irizarry M[employer]xgrip - [employer] / [id number] Implants Implanted: Qty: 1 on 04/29/2016 Device Vasclr Clsr Baln Cath 10ml Cardiovasc N/A: N/A ACCESS CLOSURE [id number] / Lkng Syr 5fr Irizarry [employer]ynxgrip - [employer] / [id number] Implants Implanted: 01/07/2017 (Quantity not on file) [facility] Periph [id number] - Vascular N/A: N/A BARD PERIPHERAL 2019 [id number] / [id number] Graft VASCULAR / Implanted: Qty: 1 on 02/07/2017 by [id number] Earnest De La Cruz MD [facility] Carboflo Str [id number] - Vascular Left: BARD PERIPHERAL 2018 [id number] / [id number] Graft Artery, VASCULAR / Implanted: Qty: 1 on 02/07/2017 by Femoral [id number] Earnest De La Cruz MD Procedures Procedure Name Priority Date/Time Associated Diagnosis Comments CO AN ELECTIVE Routine 02/07/2017 ENDOTRACHEAL AIRWAY 11:20 AM ROTATING EQUIPMENT ENGINEER Procedure Note - Demetris Cope CRNA - 02/07/2017 9:06 AM ROTATING EQUIPMENT ENGINEER Airway Date/Time: 02/07/2017 8:29 AM Performed by: [...] intubation ARTERIAL LINE Routine 02/07/2017 10:40 AM ROTATING EQUIPMENT ENGINEER Procedure Note - Demetris Cope CRNA - 02/07/2017 10:39 AM ROTATING EQUIPMENT ENGINEER Arterial line Performed by: DEMETRIS COPE Authorized [...] CREATION, BYPASS, 02/07/2017 PVD ARTERIAL, 8:15 AM ROTATING EQUIPMENT ENGINEER FEMORAL-POPLITEAL LEFT Special Needs Needs: CELL SAVER/ [...] and Americans. Specimen Performing Laboratory Plasma specimen [facility] DEPARTMENT OF PATHOLOGY AND GENOMIC MEDICINE [address] [place] [address] * CBC with platelet and differential (02/08/2017 [...] (promyelocytes, myelocytes, metamyelocytes) Specimen Performing Laboratory Blood [facility] DEPARTMENT OF PATHOLOGY AND GENOMIC MEDICINE [address] [place] [address] * Basic metabolic panel (02/08/2017 4:20 AM) [...] 10.2 mg/dL Specimen Performing Laboratory Plasma specimen [facility] DEPARTMENT OF PATHOLOGY AND GENOMIC [facility] [address] [place] [address] * XR Ankle 3+ Vw Left (02/07/2017 9:09 PM) Specimen Performing Laboratory [facility] [address] [place] [address] Addenda Addendum by Mati Ferrari MD on 02/08/2017 5:15 PM ADDENDUM #1 Under impression, the first sentence should read:" The bones are moderately osteopenic" Narrative EXAMINATION:XR ANKLE 3VW LEFT CLINICAL HISTORY:ANKLE PAINNO XRAY COMPARISON:None. IMPRESSION: Lungs are moderately osteopenic. There is no evidence of fracture or dislocation. [id number] Procedure Note Interface, Radiology Results Incoming - 02/07/2017 9:16 PM ROTATING EQUIPMENT ENGINEER EXAMINATION: XR ANKLE 3 VW LEFT CLINICAL HISTORY: ANKLE PAIN NO XRAY COMPARISON: None. IMPRESSION: Lungs are moderately osteopenic. There is no evidence of fracture or dislocation. [id number] * XR Chest 1 Vw Portable (02/07/2017 9:09 PM) Specimen Performing Laboratory [facility] [address] [place] [address] Narrative EXAMINATION:XR CHEST 1 VW PORTABLE CLINICAL HISTORY:COPD Emphysema COMPARISON:To previous study from 02/05/2017 IMPRESSION: The heart is normal in appearance and the lungs are hyperinflated without evidence of congestion or consolidation. Mild thoracal lumbar scoliosis is present. [id number] Procedure Note Interface, Radiology Results Incoming - 02/07/2017 9:14 PM ROTATING EQUIPMENT ENGINEER EXAMINATION: XR CHEST 1 VW PORTABLE CLINICAL HISTORY: COPD Emphysema COMPARISON: To previous study from 02/05/2017 IMPRESSION: The heart is normal in appearance and the lungs are hyperinflated without evidence of congestion or consolidation. Mild thoracal lumbar scoliosis is present. [id number] * POC glucose (02/07/2017 8:29 PM) Component Value Ref Range POC glucose 181 (H) 65 - 99 mg/dL Comment: Meter ID: [id number] Police Or Patrol Park Officer: Kareem Soria Specimen Performing Laboratory [facility] DEPARTMENT OF PATHOLOGY AND GENOMIC MEDICINE [id number] [place] [address] [place] [address] * OR [place] > I Hour (02/07/2017 10:45 AM) Specimen Performing Laboratory [facility] [address] [place] [address] Narrative EXAMINATION:OR FL 1 HOUR C-arm fluoroscopy was requested in OR.FLUORO TIME 0:36 IMPRESSION: Separate operative report will be issued by the physician performing the procedure. [id number] Procedure Note Interface, Radiology Results Incoming - 02/07/2017 11:37 AM ROTATING EQUIPMENT ENGINEER EXAMINATION: OR FL 1 HOUR C-arm fluoroscopy was requested in OR. FLUORO TIME 0:36 IMPRESSION: Separate operative report will be issued by the physician performing the procedure. [id number] * XR Chest 2 Vw (02/05/2017 8:10 AM) Only the most recent of 2 results within the time period is included. Specimen Performing Laboratory [facility] [address] [place] [address] Narrative EXAMINATION:XR CHEST 2 VW CLINICAL HISTORY:Z01.818 Encounter for other preprocedural examination, PREOP COMPARISON:January 03, 2017 FINDINGS: Heart size appears normal. The mediastinum is unremarkable. The lungs appear clear. There is mild scoliosis of the thoracic spine convex to the right. IMPRESSION: No acute findings are visualized [id number] Procedure Note Interface, Radiology Results Incoming - 02/05/2017 8:48 AM ROTATING EQUIPMENT ENGINEER EXAMINATION: XR CHEST 2 VW CLINICAL HISTORY: Z01.818 Encounter for other preprocedural examination, PREOP COMPARISON: January 03, 2017 FINDINGS: Heart size appears normal. The mediastinum is unremarkable. The lungs appear clear. There is mild scoliosis of the thoracic spine convex to the right. IMPRESSION: No acute findings are visualized [id number] * Partial thromboplastin time, activated (02/05/2017 7:09 AM) Only the most recent of 2 results within the time period is included. Component Value Ref Range PTT 38.3 (H) 23.0 - 36.0 sec Comment: PTT therapeutic range for unfractionated heparin is 61.0-112.0 seconds which corresponds to Anti-Xa 0.3-0.7 U/ml. Specimen Performing Laboratory Blood [facility] DEPARTMENT OF PATHOLOGY AND GENOMIC MEDICINE [address] [place] [address] [place] [address] * Prothrombin time with INR (02/05/2017 7:09 [...] vein thrombosis/pulmonary embolism. Specimen Performing Laboratory Blood [facility] DEPARTMENT OF PATHOLOGY AND GENOMIC MEDICINE [address] [place] [address] [place] [address] * Type and screen (02/05/2017 7:09 AM) Only the most recent of 2 results within the time period is included. Component Value Ref Range ABO grouping O Rh type POS Antibody screen NEG Specimen Performing Laboratory Blood [facility] DEPARTMENT OF PATHOLOGY AND [facility] MEDICINE [address] [place] [address] [place] [address] * IR Angiogram Extremity Left (01/07/2017 10:59 AM) Specimen Performing Laboratory [facility] [address] [place] [address] Narrative PROCEDURE:IR ANGIOGRAM EXTREMITY LEFT This exam [...] 10:59 AM) Specimen Performing Laboratory [facility] [address] [place] [address] Narrative PROCEDURE:US GUIDED VASCULAR ACCESS This exam [...] Range Ventricular rate 61 Atrial rate 61 CO interval 188 QRSD interval 90 QT interval 430 QTC interval 432 P axis 1 88 QRS axis 1 65 T wave axis 70 EKG impression Normal sinus rhythm-Normal ECG-In automated comparison with ECG of -APR-2016 17:15,-No significant change was found- Specimen Performing Laboratory [facility] MUSE [address] [place] [address] after 05/08/2016 Insurance Payer Benefit Subscriber ID Type Phone Address Plan / Group [employer] xxxxxxxxx O [facility]
[2017-05-09] MEDS ORDERED: POTASSIUM CHLORIDE 20 MEQ TAB CR PO STA (23:29)
[2017-05-09] MEDS ORDERED: POTASSIUM CHLORIDE 20MEQ/15ML UDC PO ONE (23:45)
[2017-05-09] MEDS: CEFTRIAXONE SOD 1 GM VIAL IV SCH (23:50)
[2017-05-10] VITALS (8 sets, daily range): BP systolic 112–172; BP diastolic 60–75
[2017-05-10 06:07] LABS: BASOPHILS % 0.5 % (0.0-1.0); HEMATOCRIT 33.5 % (34.2-44.1); HEMOGLOBIN 11.2 g/dL (12.0-16.0); LYMPHOCYTES # (AUTO) 0.9 (1.0-3.2); LYMPHOCYTES % 22.7 % (18.0-39.1); MEAN CORPUSCULAR HEMOGLOBIN 39.7 pg (28-32); MEAN CORPUSCULAR HGB CONC 33.4 g/dL (31-35); MEAN CORPUSCULAR VOLUME 118.8 fL (81-99); MONOCYTES # (AUTO) 0.3 (0.2-0.8); MONOCYTES % 7.6 % (4.4-11.3); NEUTROPHILS # (AUTO) 2.8 (2.1-6.9); PLATELET COUNT 238 x10e3/uL (140-360); RED BLOOD COUNT 2.82 x10e6/uL (3.6-5.1); RED CELL DISTRIBUTION WIDTH 15.3 % (11.7-14.4)
[2017-05-10 06:30] LABS: ALANINE AMINOTRANSFERASE 12 IU/L (0-55); ALBUMIN 3.4 g/dL (3.5-5.0); ALKALINE PHOSPHATASE 85 IU/L (40-150); ANION GAP 14.5 mmol/L (8-16); BLOOD UREA NITROGEN 19 mg/dL (7-26); BUN/CREATININE RATIO 25 (6-25); CALCIUM 9.1 mg/dL (8.4-10.2); CARBON DIOXIDE 28 mmol/L (22-29); CHLORIDE 101 mmol/L (98-107); CREATINE KINASE 85 IU/L (29-168); CREATININE, SERUM 0.76 mg/dL (0.57-1.11); EST GLOMERULAR FILTRATION RATE > 60 ML/MIN (60-); GLUCOSE 84 mg/dL (74-118); POTASSIUM 3.5 mmol/L (3.5-5.1); SODIUM 140 mmol/L (136-145)
[2017-05-10] MEDS ORDERED: TRAMADOL HCL 50 MG TAB PO PRN (11:30)
[2017-05-10] MEDS ORDERED: POTASSIUM CHLORIDE 10 MEQ TABCR PO NR (12:00)
--- NOTE | 2017-05-10 13:41 | History and Physical ---
PRIMARY CARE PHYSICIAN: Dr. Pernell Painting. ATTENDING PHYSICIAN: Clint Del Valle MD CHIEF COMPLAINT: Urinary retention. HISTORY: An 87-year-old female who has history of hysterectomy, urinary bladder suspension, came in with acute urinary retention. The patient had abdominal suprapubic bloating. A Ambrocio catheter placed and the patient has good amount of urine output. She is otherwise stable. She just recently had her left foot surgery. The patient is otherwise stable at this time. PAST MEDICAL HISTORY: Hypertension, peripheral vascular disease, left foot problem, status post skin graft. SOCIAL HISTORY: Patient does not smoke or use alcohol. No recreational drugs. ALLERGIES: VANCOMYCIN, TRIMETHOPRIM, SULFAMETHOXAZOLE, ERYTHROMYCIN BASE. HOME MEDICATIONS: Plavix, hydroxyzine, losartan, HCTZ, metoprolol succinate, and tramadol. REVIEW OF SYSTEMS: Urinary retention. PHYSICAL EXAMINATION: VITAL SIGNS: Temperature is 98, blood pressure 146/66, pulse rate 60, respirations 18. GENERAL: The patient is in no acute distress. She is awake. HEENT: Normocephalic, atraumatic. NECK: Supple grossly. PULMONARY: Clear. CARDIOVASCULAR: Regular rhythm. ABDOMEN: Soft. EXTREMITIES: No cyanosis or edema. Left foot dressing intact. NEUROLOGIC: No focal deficit. : Ambrocio catheter. LABORATORY DATA: Sodium is 140, potassium 3.5, chloride 101, bicarb 28, BUN 19, creatinine 0.7, glucose 84. WBC 4, hemoglobin 12, hematocrit 33.5, platelets 238. IMPRESSION: Urinary retention, most likely secondary to neurogenic bladder. The patient want the Ambrocio out. She does want to try of urination. She had this problem in the past, which resolved immediately. The patient wants to go home if she is able to urinate. Will adjust her medication. Replace potassium. Will monitor patient closely at this time. Discontinue Ambrocio catheter and monitor urine output. On discharge, if the patient does go home, she will take Keflex for 7 days and potassium 10 mEq daily. Job#: [id number] [facility]
[2017-05-10 16:04] LABS: CREATINE KINASE MB 1.8 ng/mL (0-5.0)
[2017-05-10] MEDS: CEFTRIAXONE SOD 1 GM VIAL IV SCH (23:37)
[2017-05-11] VITALS: BP 107/50
[2017-05-11 04:00] VITALS: BP 166/72
[2017-05-11 06:43] LABS: ANION GAP 12.6 mmol/L (8-16); BLOOD UREA NITROGEN 19 mg/dL (7-26); BUN/CREATININE RATIO 25 (6-25); CALCIUM 8.5 mg/dL (8.4-10.2); CARBON DIOXIDE 29 mmol/L (22-29); CHLORIDE 98 mmol/L (98-107); CREATININE, SERUM 0.77 mg/dL (0.57-1.11); EST GLOMERULAR FILTRATION RATE > 60 ML/MIN (60-); GLUCOSE 98 mg/dL (74-118); POTASSIUM 3.6 mmol/L (3.5-5.1); SODIUM 136 mmol/L (136-145)
[2017-05-11 08:00] VITALS: BP 133/73
[2017-05-11] MEDS ORDERED: HYDROXYUREA 500 MG CAPSULE PO SCH (09:00)
[2017-05-11] MEDS ORDERED: CLOPIDOGREL BISULFATE 75 MG TAB PO SCH (09:00)
[2017-05-11] MEDS ORDERED: METOPROLOL SUCCINATE 50 MG TAB XL PO SCH (10:30)
[2017-05-11 10:44] VITALS: BP 133/73
[2017-05-11 11:51] VITALS: BP 136/63
--- NOTE | 2017-05-11 16:50 | Discharge Summary ---
PRIMARY CARE PHYSICIAN: Dr. Pernell Painting CHIEF COMPLAINT: Abdominal pelvic pain. FINAL DIAGNOSES: 1. Urinary retention status post Ambrocio catheter placement and subsequent discontinue with post void residual 130 mL. 2. Urinary tract infection. SUMMARY: An 87-year-old female who came in with slightly low potassium level. Patient was on losartan hydrochlorothiazide. She also has increasing suprapubic discomfort found to be urinary retention. Ambrocio catheter placed and approximately 1.5 liters out. The patient was stable post Ambrocio catheter placement. Last night the patient's Ambrocio catheter was discontinued. The patient continued to eat and drink adequately. This morning she voided well. Post void 130 mL urinary bladder scan. The patient is stable. She does want to go home. Discharged home with Keflex for 5 days and potassium 10 mEq daily. The patient is stable to be discharged home to follow up with Dr. Pernell Painting outpatient within a week. Job#: [id number]
== END 2017-05-11 13:20 | disposition home or self-care (01) ==
LOC: ER 12:37 → ERHOLD 23:16 → IMCU 23:53
PROVIDERS: ADMIT Internal Medicine; ATTEND Internal Medicine
DX: R33.8 Other retention of urine (principal); N31.9 Neuromuscular dysfunction of bladder, unspecified; N39.0 Urinary tract infection, site not specified
CPT/HCPCS: 36415 ×3; 51700; 71045; 74177; 80048; 80053 ×2; 81001; 82550 ×2; 82553 ×2; 83735; 83880; 84484 ×2; 85025 ×2; 85610; 85730; 93005; 99284; G0378 ×3; J0696 ×2; J2270; J7030 ×2; Q9967

== ENCOUNTER 2017-05-21 12:39 | Outpatient (RCR) | payer OTHER | END 2017-06-07 | LOC: WCC 12:39 | PROVIDERS: ATTEND Podiatrist Foot & Ankle Surgery | DX: I87.332 Chronic venous hypertension (idiopathic) with ulcer and inflammation of left lower extremity (principal); L97.322 Non-pressure chronic ulcer of left ankle with fat layer exposed; I87.2 Venous insufficiency (chronic) (peripheral); D64.9 Anemia, unspecified; I10 Essential (primary) hypertension; I25.84 Coronary atherosclerosis due to calcified coronary lesion; W22.8XXA Striking against or struck by other objects, initial encounter ==

== ENCOUNTER 2017-06-18 13:16 | Outpatient (RCR) | payer OTHER ==
[2017-06-18] MEDS ORDERED: CLOTRIMAZOLE/BETAMETHASONE 45 GM CR TP ONE (17:49)
== END 2017-07-07 ==
LOC: WCC 13:16
PROVIDERS: ATTEND Podiatrist Foot & Ankle Surgery
DX: I87.332 Chronic venous hypertension (idiopathic) with ulcer and inflammation of left lower extremity (principal); L97.322 Non-pressure chronic ulcer of left ankle with fat layer exposed; I10 Essential (primary) hypertension; I25.84 Coronary atherosclerosis due to calcified coronary lesion; I87.2 Venous insufficiency (chronic) (peripheral); D64.9 Anemia, unspecified; W22.8XXA Striking against or struck by other objects, initial encounter

== ENCOUNTER 2017-07-22 18:20 | Inpatient (IN) | payer OTHER ==
[~2017-07-22] VITALS: Ht 165.1 cm; Wt 52.2 kg
--- OUTSIDE RECORDS SUMMARY | 2017-07-22 18:24 | XMS REPORT | Continuity of Care Document ---
Author Author [facility] Organization [facility] Address [address] [place] [address] Phone Unavailable Care Team Providers Care Head Scorer Name Role Phone DILCIA COLUNGA MD PCP Insurance Providers Guarantor Klaudia Mccurdy Address [address] [place] [address] Email PTDECLINED Payer [facility] [employer] Policy Number [id number] Subscriber's Name Klaudia Mccurdy Relationship 18 Self / Same As Patient Group Number [id number] Group Name [facility] - Medicare Advantage Divis Effective Date 17 Advance Directives Directive Response Recorded Date/Time Does the patient have an advance directive? No 05/10/17 12:30am If yes, is advance directive on file with [facility]? No 05/10/17 12:30am If not on file with [facility] will patient provide a copy? No 05/10/17 12:30am Do you have a Directive to Physician? No 06/11/17 11:21am Do you have a Medical Power of Binder And Box Builder? No 06/11/17 11:21am Do you have an out of hospital Do Not Resuscitate Order? No 06/11/17 11:21am Do you have any special needs we should be aware of? No 06/11/17 11:21am Do you have a support person here with you today? No 06/11/17 11:21am Did patient receive Notice of Privacy Practices? Yes 06/11/17 11:21am Did patient receive patient rights and responsibilities? Yes 06/11/17 11:21am Problems Medical Problem Onset Date Status Abdominal pain Unknown Urinary retention Unknown Medications Current Home Medications Medication Dose Units Route Directions Days Qty Instructions Start Date Clopidogrel Bisulfate (Plavix) 75 Mg Tablet 75 Mg Oral Daily 30 Tab Hydroxyurea 500 Mg Capsule 500 Mg Oral Daily Losartan/Hydrochlorothiazide (Losartan-Hctz 100-25 Mg Tab) 1 Each Tablet Oral Bedtime Metoprolol Succinate 50 Mg Tab.er.24h 50 Mg Oral Twice A Day METOPROLOL ER 50MG ORAL TWICE DAILY Tramadol Hcl (Ultram) 50 Mg Tablet 50 [...] Onset Date Status Hx Psychiatric Problems No 05/10/2017 12:30am Not Applicable Not Applicable Hx Eating Disorder No 05/10/2017 12:30am Not Applicable Not Applicable Hx Substance Use Disorder No 05/10/2017 12:30am Not Applicable Not Applicable Hx Depression No 05/10/2017 12:30am Not Applicable Not Applicable Hx Alcohol Use No 05/10/2017 12:30am Not Applicable Not Applicable Hx Substance Use Treatment No 05/10/2017 12:30am Not Applicable Not Applicable Hx Physical Abuse No 05/10/2017 12:30am Not Applicable Not Applicable Hospital Discharge Instructions No hospital discharge instruction information available. Plan of Care Prescriptions See Medication Section Functional Status No functional status information available. Allergies, Adverse Reactions, Alerts Allergen Type Severity Reaction Status Last Updated Erythromycin base Allergy Unknown Active 05/09/17 Sulfamethoxazole Allergy Unknown Active 05/09/17 Trimethoprim Allergy Unknown Active 05/09/17 Vancomycin Allergy Unknown Active 05/09/17 Immunizations No immunization information available. Vital Signs Acute Vital Signs Vital Response Date/Time Temperature (Fahrenheit) 98.1 degrees F (97.6 - 99.5) 05/11/2017 11:51am Pulse Pulse Rate (adult) 63 bpm (60 - 90) 05/11/2017 11:51am Respiratory Rate 16 bpm (12 - 24) 05/11/2017 11:51am Blood Pressure 136/63 mm Hg 05/11/2017 11:51am Results Laboratory Results Test Name Result Units Flags Reference Collection Date/Time Result Date/ Time Comments Erythrocyte Sedimentation Rate 101 mm/hr H 0-20 12/18/2016 5:45pm 2016 7:10pm White Blood Count 4.10 x10e3/uL L 4.8-10.8 05/10/2017 5:50am 05/10/2017 6:13am Red Blood Count 2.82 x10e6/uL L 3.6-5.1 05/10/2017 5:50am 05/10/2017 6: 13am Hemoglobin 11.2 g/dL L 12.0-16.0 05/10/2017 5:50am 05/10/2017 6:13am Hematocrit 33.5 % L 34.2-44.1 05/10/2017 5:50am 05/10/2017 6:13am Mean Corpuscular Volume 118.8 fL H 81-99 05/10/2017 5:50am 05/10/2017 6: 13am Mean Corpuscular Hemoglobin 39.7 pg H 28-32 05/10/2017 5:50am 2017 6:13am Mean Corpuscular Hemoglobin Concent 33.4 g/dL 31-35 05/10/2017 5:50am 05/10/2017 6:13am Red Cell Distribution Width 15.3 % H 11.7-14.4 05/10/2017 5:50am 2017 6:13am Platelet Count 238 x10e3/uL 140-360 05/10/2017 5:50am 05/10/2017 6: 13am Neutrophils (%) (Auto) 68.0 % 38.7-80.0 05/10/2017 5:50am 05/10/2017 6: 13am Lymphocytes (%) (Auto) 22.7 % 18.0-39.1 05/10/2017 5:50am 05/10/2017 6: 13am Monocytes (%) (Auto) 7.6 % 4.4-11.3 05/10/2017 5:50am 05/10/2017 6: 13am Eosinophils (%) (Auto) 1.0 % 0.0-6.0 05/10/2017 5:50am 05/10/2017 6: 13am Basophils (%) (Auto) 0.5 % 0.0-1.0 05/10/2017 5:50am 05/10/2017 6:13am IM GRANULOCYTES % 0.2 % 0.0-1.0 05/10/2017 5:50am 05/10/2017 6:13am Neutrophils # (Auto) 2.8 2.1-6.9 05/10/2017 5:50am 05/10/2017 6:13am Lymphocytes # (Auto) 0.9 L 1.0-3.2 05/10/2017 5:50am 05/10/2017 6: 13am Monocytes # (Auto) 0.3 0.2-0.8 05/10/2017 5:50am 05/10/2017 6:13am Eosinophils # (Auto) 0.0 0.0-0.4 05/10/2017 5:50am 05/10/2017 6:13am Basophils # (Auto) 0.0 0.0-0.1 05/10/2017 5:50am 05/10/2017 6:13am Absolute Immature Granulocyte (auto 0.01 x10e3/uL 0-0.1 05/10/2017 5: 50am 05/10/2017 6:13am Prothrombin Time 13.4 seconds 11.9-14.5 05/09/2017 1:50pm 05/09/2017 8: 01pm Prothromb Time International Ratio 1.10 05/09/2017 1:50pm 2017 8:01pm Oral Anticoagulant Therapy INR Values: 1. Low Intensity Therapy 1.5 - 2.0 2. Moderate Intensity Therapy 2.0 - 3.0 3. High Intensity Therapy(1) 2.5 - 3.5 4. High Intensity Therapy(2) 3.0 - 4.0 5. Panic Value INR > 5.0 Activated Partial Thromboplast Time 35.4 seconds 23.8-35.5 05/09/2017 1: 50pm 05/09/2017 8:01pm Urine Color YELLOW YELLOW 05/09/2017 1:47pm 05/09/2017 3:36pm Urine Clarity CLEAR CLEAR 05/09/2017 1:47pm 05/09/2017 3:36pm Urine Specific [place] 1.010 1.010-1.025 05/09/2017 1:47pm 2017 3:36pm Urine pH 6.5 5 - 7 05/09/2017 1:47pm 05/09/2017 3:36pm Urine Leukocyte Esterase 1+ H NEGATIVE 05/09/2017 1:47pm 05/09/2017 3: 36pm Urine Nitrite NEGATIVE NEGATIVE 05/09/2017 1:47pm 05/09/2017 3:36pm Urine Protein NEGATIVE NEGATIVE 05/09/2017 1:47pm 05/09/2017 3:36pm Urine Glucose (UA) NEGATIVE NEGATIVE 05/09/2017 1:47pm 05/09/2017 3: 36pm Urine Ketones NEGATIVE NEGATIVE 05/09/2017 1:47pm 05/09/2017 3:36pm Urine Urobilinogen 0.2 mg/dL 0.2 - 1 05/09/2017 1:47pm 05/09/2017 3: 36pm Urine Bilirubin NEGATIVE NEGATIVE 05/09/2017 1:47pm 05/09/2017 3: 36pm Urine Blood TRACE H NEGATIVE 05/09/2017 1:47pm 05/09/2017 3:36pm Urine WBC 0-5 /HPF 0-5 05/09/2017 1:47pm 05/09/2017 4:04pm Urine RBC 0-5 /HPF 0-5 05/09/2017 1:47pm 05/09/2017 4:04pm Urine Bacteria NONE /HPF NONE 05/09/2017 1:47pm 05/09/2017 4:04pm Urine Epithelial Cells MODERATE /LPF NONE 05/09/2017 1:47pm 05/09/2017 4:04pm Sodium Level 136 mmol/L 136-145 05/11/2017 5:40am 05/11/2017 6:45am Potassium Level 3.6 mmol/L 3.5-5.1 05/11/2017 5:40am 05/11/2017 6:45am Chloride Level 98 mmol/L 98-107 05/11/2017 5:40am 05/11/2017 6:45am Carbon Dioxide Level 29 mmol/L 22-29 05/11/2017 5:40am 05/11/2017 6: 45am Anion Gap 12.6 mmol/L 8-16 05/11/2017 5:40am 05/11/2017 6:45am Blood Urea Nitrogen 19 mg/dL 7-26 05/11/2017 5:40am 05/11/2017 6:45am Creatinine 0.77 mg/dL 0.57-1.11 05/11/2017 5:40am 05/11/2017 6:45am BUN/Creatinine Ratio 25 6-25 05/11/2017 5:40am 05/11/2017 6:45am Estimat Glomerular Filtration Rate > 60 ML/MIN 60- 05/11/2017 5:40am 6:45am Ranges were taken from the National Kidney Disease Education Program and the National Kidney Foundation literature. Reference ranges: 60 or greater: Normal 16-59 (for 3 consecutive months): Chronic kidney disease 15 or less: Kidney failure Glucose Level 98 mg/dL 74-118 05/11/2017 5:40am 05/11/2017 6:45am Calcium Level 8.5 mg/dL 8.4-10.2 05/11/2017 5:40am 05/11/2017 6:45am Magnesium Level 2.0 MG/DL 1.3-2.1 05/09/2017 1:50pm 05/09/2017 8:10pm Total Bilirubin 0.6 mg/dL 0.2-1.2 05/10/2017 5:50am 05/10/2017 6:48am Aspartate Amino Transf (AST/SGOT) 19 IU/L 5-34 05/10/2017 5:50am 2017 6:48am Alanine Aminotransferase (ALT/SGPT) 12 IU/L 0-55 05/10/2017 5:50am 05/2017 6:48am Total Protein 6.9 g/dL 6.5-8.1 05/10/2017 5:50am 05/10/2017 6:48am Albumin 3.4 g/dL L 3.5-5.0 05/10/2017 5:50am 05/10/2017 6:48am Globulin 3.5 g/dL 2.3-3.5 05/10/2017 5:50am 05/10/2017 6:48am Albumin/Globulin Ratio 1.0 0.8-2.0 05/10/2017 5:50am 05/10/2017 6: 48am Alkaline Phosphatase 85 IU/L 40-150 05/10/2017 5:50am 05/10/2017 6: 48am B-Type Natriuretic Peptide 366.4 pg/mL H 0-100 05/09/2017 1:50pm 2017 8:20pm Creatine Kinase 67 IU/L 29-168 05/10/2017 3:23pm 05/10/2017 4:05pm Creatine Kinase MB 1.80 ng/mL 0-5.0 05/10/2017 3:23pm 05/10/2017 4: 05pm Troponin I 0.011 ng/mL 0-0.300 05/10/2017 3:23pm 05/10/2017 4:05pm Procedures Procedure Status Date Provider(s) ALISON BONE 20 SQ CM/< Completed 02/11/17 MAYA WU DPM SKIN SUB GRAFT TRNK/ARM/LEG Completed 02/11/17 MAYA WU DPM X-ray of chest, two views Active 02/10/17 MAYA WU DPM Computed tomography of abdomen and pelvis with contrast Active 05/09/17 CATALINA ELIZABETH MD Encounters Encounter Location Arrival/Admit Date Discharge/Depart Date Attending Provider Discharged [facility] 06/18/17 1:16pm 07/07/17 11:59pm MAYA WU DPM Discharged [facility]ring [facility] 05/14/17 12:30pm 11:59pm MAYA WU DPM Discharged Inpatient (obs) [facility] 05/09/17 11:16pm 1:20pm CORDELIA BARCENAS MD Discharged [facility]ring [facility] 04/16/17 12:26pm 11:59pm MAYA WU DPM Discharged Recurring [facility] 03/12/17 12:29pm 11:59pm MAYA WU DPM Discharged Recurring [facility] 02/19/17 12:00pm 11:59pm MAYA WU DPM Registered Surgical Day Care [facility] 02/11/17 5:36am MAYA WU DPM Discharged Recurring [facility] 01/08/17 12:25pm 11:59pm MAYA WU DPM Discharged Inpatient [facility] 12/18/16 1:33pm 12/24/16 11:30am CORDELIA BARCENAS MD Discharged [facility]ring [facility] 12/18/16 11:50am 11:59pm MAYA WU DPM Discharged Recurring [facility] 11/13/16 1:33pm 12/07/16 11:59pm MAYA WU DPM Discharged [facility]ring [facility] 10/09/16 12:51pm 11:59pm MAYA WU DPM Discharged [facility]ring [facility] 09/11/16 12:01pm 11:59pm MAYA WU DPM
--- OUTSIDE RECORDS SUMMARY | 2017-07-22 18:24 | XMS REPORT | Clinical Summary ---
Author Author [facility] Organization [facility] Address Unknown Phone Unavailable Care Team Providers Care Batch Records Clerk Name Role Phone Pernell Painting MD PCP [...] Date Type Specialty Care Team Description 02/07/2017 [facility] General Surgery Earnest De La Cruz MD Preoperative testing - Encounter Anthony Aguilar MD 02/10/2017 02/07/2017 Procedure Pass General Surgery 02/07/2017 Surgery General Surgery Earnest De La Cruz MD CREATION, BYPASS, ARTERIAL, FEMORAL-POPLITEAL LEFT 02/06/2017 Anesthesia General Surgery Yanci Mantilla MD Event 02/05/2017 [facility] Radiology Earnest De La Cruz MD Encounter 02/05/2017 Pre-Admit Pre-Admission Testing Earnest De La Cruz MD Preoperative testing Testing (Primary Dx) Appointment 01/07/2017 [facility] Radiology Earnest De La Cruz MD PVD ( peripheral vascular Encounter disease); Preop testing 01/07/2017 Ancillary Radiology Earnest De La Cruz MD PVD ( peripheral vascular Orders disease) 01/07/2017 Ancillary Access Earnest De La Cruz MD PVD (peripheral vascular Orders disease) 01/03/2017 [facility] Radiology Earnest De La Cruz MD Encounter 01/03/2017 Pre-Admit Pre-Admission Testing Earnest De La Cruz MD Preop testing (Primary Testing Dx) Appointment 10/31/2016 Transcribe Access Earnest De La Cruz MD PVD (peripheral vascular Orders disease) (Primary Dx) after 07/21/2016 Family History Medical History Relation Name Comments [...] Taken Blood Pressure 133/61 02/10/2017 7:43 AM CRT Pulse 79 02/10/2017 7:43 AM CRT Temperature 36.6 C (97.8 F) 02/10/2017 7:43 AM CRT Respiratory Rate 18 02/10/2017 7:43 AM CRT Oxygen Saturation 93% 02/10/2017 7:43 AM CRT Inhaled Oxygen - - Concentration Weight 56.1 kg (123 lb 11.2 oz) 02/07/2017 12:00 PM CRT Height 167.6 cm (5' 6") 02/07/2017 6:52 AM CRT Body Mass Index 19.97 02/07/2017 12:00 PM CRT Plan of Treatment Health Maintenance Due Date Last Done Comments SHINGRIX VACCINE (#1) 1979 ZOSTER VACCINE 1989 PNEUMOCOCCAL 1994 POLYSACCHARIDE VACCINE AGE 65 AND OVER PNEUMOCOCCAL-13 1994 INFLUENZA VACCINE 10/08/2017 Implants Implanted Type Area Derrick Builder Device Expiration Model / Identifier Date Serial / Lot Device Vasclr Clsr Baln Cath 10ml Cardiovasc N/A: N/A ACCESS CLOSURE 02/06/2018 [id number] / Lkng Syr 5fr Irizar[employer] / [id number] Implants Implanted: Qty: 1 on 04/29/2016 Device Vasclr Clsr Baln Cath 10ml Cardiovasc N/A: N/A ACCESS CLOSURE [id number] / Lkng Syr 5fr Irizarry [employer]ynx[employer]rip - [employer] / [id number] Implants Implanted: 01/07/2017 (Quantity not on file) [facility] Vasc Periph [id number] - Vascular N/A: N/A BARD PERIPHERAL 2019 [id number] / [id number] Graft VASCULAR / Implanted: Qty: 1 on 02/07/2017 by [id number] Earnest De La Cruz MD [facility] Vas Carboflo Str [id number] - Vascular Left: BARD PERIPHERAL 2018 [id number] / [id number] Graft Artery, VASCULAR / Implanted: Qty: 1 on 02/07/2017 by Femoral [id number] Earnest De La Cruz MD Procedures Procedure Name Priority Date/Time Associated Diagnosis Comments MT AN ELECTIVE Routine 02/07/2017 ENDOTRACHEAL AIRWAY 11:20 AM CRT Procedure Note - Demetris Cope CRNA - 02/07/2017 9:06 AM CRT Airway Date/Time: 02/07/2017 8:29 AM Performed by: DEMETRIS COPE Authorized by: YANCI MANTILLA Location: OR Urgency: Elective Difficult Airway: No Anesthesio logist: YANCI MANTILLA/Claudio TAVARES/AA: DEMETRIS COPE Performed by: resident/C CHAITANYA and [...] intubation ARTERIAL LINE Routine 02/07/2017 10:40 AM CRT Procedure Note - Demetris Cope CRNA - 02/07/2017 10:39 AM CRT Arterial line Performed by: DEMETRIS COPE Authorized by: YANCI MANTILLA Patient Location: OR Start Time: 02/07/2017 8:35 AM End Time: 02/07/2017 8:40 AM Staff: /Claudio TAVARES/AA: DEMETRIS COPE Performed by: /C CHAITANYA/HIRO Pre-proced ure: patient identified , IV checked, [...] CREATION, BYPASS, 02/07/2017 PVD ARTERIAL, 8:15 AM CRT FEMORAL-POPLITEAL LEFT Special Needs Needs: CELL SAVER/ ASSISTANTR EGULAR GRAFTSPOKE WITH CHINTAN HALL - BW after 07/21/2016 Results * Estimated GFR (02/08/2017 4:20 AM) [...] Americans. Specimen Performing Laboratory Plasma specimen [facility] DEPARTMENT OF PATHOLOGY AND GENOMIC MEDICINE [address] [place] [address] * CBC with platelet and differential (02/08/2017 [...] (promyelocytes, myelocytes, metamyelocytes) Specimen Performing Laboratory Blood [facility] OF [facility]OLOG[facility] AND [facility] [address] [place] [address] * Basic metabolic panel (02/08/2017 4:20 AM) [...] mg/dL Specimen Performing Laboratory Plasma specimen [facility] DEPARTMENT OF PATHOLOGY AND [facility] [address] [place] [address] [place] [address] * XR Ankle 3+ Vw Left (02/07/2017 9:09 PM) Specimen Performing Laboratory [facility] [address] [place] [address] Addenda Addendum by Mati Ferrari MD on 02/08/2017 5:15 PM ADDENDUM #1 Under impression, the first sentence should read:" The bones are moderately osteopenic" Narrative EXAMINATION:XR ANKLE 3VW LEFT CLINICAL HISTORY:ANKLE PAINNO XRAY COMPARISON:None. IMPRESSION: Lungs are moderately osteopenic. There is no evidence of fracture or dislocation. [facility]-[id number] Procedure Note Interface, Radiology Results Incoming - 02/07/2017 9:16 PM CRT EXAMINATION: XR ANKLE 3 VW LEFT CLINICAL HISTORY: ANKLE PAIN NO XRAY COMPARISON: None. IMPRESSION: Lungs are moderately osteopenic. There is no evidence of fracture or dislocation. [facility]-[id number] * XR Chest 1 Vw Portable (02/07/2017 9:09 PM) Specimen Performing Laboratory [facility] [address] [place] [address] Narrative EXAMINATION:XR CHEST 1 VW PORTABLE CLINICAL HISTORY:COPD Emphysema COMPARISON:To previous study from 02/05/2017 IMPRESSION: The heart is normal in appearance and the lungs are hyperinflated without evidence of congestion or consolidation. Mild thoracal lumbar scoliosis is present. [facility]-[id number] Procedure Note Interface, Radiology Results Incoming - 02/07/2017 9:14 PM CRT EXAMINATION: XR CHEST 1 VW PORTABLE CLINICAL HISTORY: COPD Emphysema COMPARISON: To previous study from 02/05/2017 IMPRESSION: The heart is normal in appearance and the lungs are hyperinflated without evidence of congestion or consolidation. Mild thoracal lumbar scoliosis is present. [facility]-[id number] * POC glucose (02/07/2017 8:29 PM) Component Value Ref Range POC glucose 181 (H) 65 - 99 mg/dL Comment: Meter ID: [id number] Ice Cream Chef: Kareem Soria Specimen Performing Laboratory [facility] DEPARTMENT OF PATHOLOGY AND GENOMIC MEDICINE [id number] [place] [address] * [place] > I Hour (02/07/2017 10:45 AM) Specimen Performing Laboratory [address] [address] Narrative EXAMINATION:OR [place] 1 HOUR C-arm fluoroscopy was requested in OR.FLUORO TIME 0:36 IMPRESSION: Separate operative report will be issued by the physician performing the procedure. [id number] Procedure Note Interface, Radiology Results Incoming - 02/07/2017 11:37 AM CRT EXAMINATION: OR [place] 1 HOUR C-arm fluoroscopy was requested in OR. FLUORO TIME 0:36 IMPRESSION: Separate operative report will be issued by the physician performing the procedure. [id number] * XR Chest 2 Vw (02/05/2017 8:10 AM) Only the most recent of 2 results within the time period is included. Specimen Performing Laboratory [facility] [address] [place] [address] Narrative EXAMINATION:XR CHEST 2 VW CLINICAL HISTORY:Z01.818 Encounter for other preprocedural examination, PREOP COMPARISON:January 03, 2017 FINDINGS: Heart size appears normal. The mediastinum is unremarkable. The lungs appear clear. There is mild scoliosis of the thoracic spine convex to the right. IMPRESSION: No acute findings are visualized [id number] Procedure Note Hm Interface, Radiology Results Incoming - 02/05/2017 8:48 AM CRT EXAMINATION: XR CHEST 2 VW CLINICAL HISTORY: Z01.818 Encounter for other preprocedural examination, PREOP COMPARISON: January 03, 2017 FINDINGS: Heart size appears normal. The mediastinum is unremarkable. The lungs appear clear. There is mild scoliosis of the thoracic spine convex to the right. IMPRESSION: No acute findings are visualized [id number] * Partial thromboplastin time, activated (02/05/2017 7:09 AM) Only the most recent of 2 results within the time period is included. Component Value Ref Range PTT 38.3 (H) 23.0 - 36.0 sec Comment: PTT therapeutic range for unfractionated heparin is 61.0-112.0 seconds which corresponds to Anti-Xa 0.3-0.7 U/ml. Specimen Performing Laboratory Blood [facility] DEPARTMENT OF PATHOLOGY AND [facility] MEDICINE [address] [place] [address] [place] [address] * Prothrombin time with INR (02/05/2017 7:09 [...] thrombosis/pulmonary embolism. Specimen Performing Laboratory Blood [facility] DEPARTMENT OF PATHOLOGY AND GENOMIC MEDICINE [address] [place] [address] [place] [address] * Type and screen (02/05/2017 7:09 AM) Only the most recent of 2 results within the time period is included. Component Value Ref Range ABO grouping O Rh type POS Antibody screen NEG Specimen Performing Laboratory Blood [facility] DEPARTMENT OF PATHOLOGY AND [facility] [address] [place] [address] [place] [address] * IR Angiogram Extremity Left (01/07/2017 10:59 AM) Specimen Performing Laboratory [facility] [address] [place] [address] Narrative PROCEDURE:IR ANGIOGRAM EXTREMITY LEFT This exam [...] 10:59 AM) Specimen Performing Laboratory [facility] [address] [place] [address] Narrative PROCEDURE:US GUIDED VASCULAR ACCESS This exam [...] Range Ventricular rate 61 Atrial rate 61 MT interval 188 QRSD interval 90 QT interval 430 QTC interval 432 P axis 1 88 QRS axis 1 65 T wave axis 70 EKG impression Normal sinus rhythm-Normal ECG-In automated comparison with ECG of 26-APR-2016 17:15,-No significant change was found- Specimen Performing Laboratory [facility] [address] [place] [address] after 07/21/2016 Insurance Payer Benefit Subscriber ID Type Phone Address Plan / Group [employer] TEXAN[employer]US xxxxxxxxx O [facility] Home: [address] [place] [id number]
[2017-07-22 19:10] LABS: BASOPHILS % 0.4 % (0.0-1.0); EOSINOPHILS % 0.2 % (0.0-6.0); HEMATOCRIT 38.3 % (34.2-44.1); HEMOGLOBIN 13.5 g/dL (12.0-16.0); LYMPHOCYTES # (AUTO) 0.7 (1.0-3.2); LYMPHOCYTES % 6.7 % (18.0-39.1); MEAN CORPUSCULAR HEMOGLOBIN 41.3 pg (28-32); MEAN CORPUSCULAR HGB CONC 35.2 g/dL (31-35); MEAN CORPUSCULAR VOLUME 117.1 fL (81-99); MONOCYTES % 9.2 % (4.4-11.3); NEUTROPHILS % 82.4 % (38.7-80.0); PLATELET COUNT 903 x10e3/uL (140-360); RED BLOOD COUNT 3.27 x10e6/uL (3.6-5.1); RED CELL DISTRIBUTION WIDTH 13.8 % (11.7-14.4)
[2017-07-22] MEDS ORDERED: SODIUM CHLORIDE 0.9% 250ML 250 ML IV ONE (19:15)
[2017-07-22 19:21] LABS: INR 1.14; PROTHROMBIN TIME 13.7 seconds (11.9-14.5)
[2017-07-22 19:22] LABS: PARTIAL THROMBOPLASTIN TIME 37.6 seconds (23.8-35.5)
[2017-07-22] MEDS ORDERED: DIATRIZOATE MEGL/DIATRIZOA SOD 30 ML BTL PO ONE (19:29)
[2017-07-22 19:33] LABS: ALBUMIN/GLOBULIN RATIO 0.8 (0.8-2.0); CREATININE, SERUM 1.34 mg/dL (0.57-1.11)
[2017-07-22 19:39] LABS: CREATINE KINASE MB 3.2 ng/mL (0-5.0)
[2017-07-22] MEDS ORDERED: ONDANSETRON HCL 4 MG ORAL DISINTEGRATING TAB SL NR (20:30)
[2017-07-22 21:27] LABS: CLARITY,URINE CLEAR (CLEAR); COLOR,URINE YELLOW (YELLOW); LEUKOCYTE ESTERASE ,URINE NEGATIVE (NEGATIVE); NITRITE,URINE NEGATIVE (NEGATIVE)
[2017-07-22 21:28] LABS: BILIRUBIN,URINE NEGATIVE (NEGATIVE); KETONES,URINE NEGATIVE (NEGATIVE); PROTEIN,URINE DIPSTICK NEGATIVE (NEGATIVE); URINE UROBILINOGEN 0.2 mg/dL (0.2 - 1)
[2017-07-22 21:39] LABS: MUCUS,URINE FEW (RARE); RBC,URINE 0-5 /HPF (0-5); WBC,URINE (MAN) 0-5 /HPF (0-5)
--- NOTE | 2017-07-22 22:27 | Diagnostic Imaging Report ---
EXAM: CT Abdomen and Pelvis WITHOUT contrast INDICATION: Lower abdominal pain, nausea, vomiting COMPARISON: 05/09/2017 TECHNIQUE: Abdomen and pelvis were scanned utilizing a multidetector helical scanner from the lung base to the pubic symphysis without administration of IV contrast. Absence of intravenous contrast decreases sensitivity for detection of focal lesions and vascular pathology. Coronal and sagittal reformations were obtained. Stone protocol is performed. IV CONTRAST: None. ORAL CONTRAST: Gastrografin RADIATION DOSE: Total DLP: 3040.04 mGy*cm Estimated effective dose: (DLP x 0.015 x size factor) mSv COMPLICATIONS: None FINDINGS: LINES and TUBES: None. LOWER THORAX: There is bibasilar atelectasis. HEPATOBILIARY: No focal hepatic lesions. No biliary ductal dilation. GALLBLADDER: No radio-opaque stones or sludge. No wall thickening. SPLEEN: No splenomegaly. PANCREAS: No focal masses or ductal dilatation. ADRENALS: No adrenal nodules KIDNEYS/URETERS: No hydronephrosis. However, there is prominent bilateral extrarenal pelvises and prominence of the bilateral ureters without distal obstruction. No cystic or solid mass lesions. No stones. 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 GI TRACT: No abnormal distention, wall thickening, or evidence of bowel obstruction. There are diverticula within the colon without evidence of diverticulitis. Appendix is normal. PELVIC ORGANS/BLADDER: The uterus is absent. Bilateral ovaries are unremarkable. The bladder is decompressed by a Ambrocio catheter in place LYMPH NODES: No lymphadenopathy. VESSELS: There is severe atherosclerotic disease in the aorta and major arterial branches. Partially visualized left femoropopliteal graft and femoral artery stent. PERITONEUM / RETROPERITONEUM: No free air or fluid. BONES: There are severe degenerative changes in the lumbar spine. SOFT TISSUES: Unremarkable. IMPRESSION: 1. No evidence of acute intra-abdominal or pelvic abnormality Signed by: Dr. Landry Taylor M.D. on 07/22/2017 10:23 PM
[2017-07-22] MEDS: SODIUM CHLORIDE 0.9% 1000ML 1,000 ML IV SCH (22:32)
[2017-07-22] MEDS ORDERED: ONDANSETRON HCL 4 MG ORAL DISINTEGRATING TAB PO PRN (22:45)
[2017-07-22] MEDS ORDERED: DONNATAL/LIDOCAINE/MAALOX 30 ML SUSP PO ONE (22:45)
--- OUTSIDE RECORDS SUMMARY | 2017-07-22 22:47 | XMS REPORT | Clinical Summary ---
Author Author [employer] [facility] [employer] Address Unknown Phone Unavailable Care Team Providers Care Business Development Recruiter Name Role Phone Pernell Painting MD PCP [...] Date Type Specialty Care Team Description 02/07/2017 [facility] General Surgery Earnest De La Cruz MD Preoperative testing - Encounter Anthony Aguilar MD 02/10/2017 02/07/2017 Procedure Pass General Surgery 02/07/2017 Surgery General Surgery Earnest De La Cruz MD CREATION, BYPASS, ARTERIAL, FEMORAL-POPLITEAL LEFT 02/06/2017 Anesthesia General Surgery Yanci Mantilla MD Event 02/05/2017 [facility] Radiology Earnest De La Cruz MD Encounter 02/05/2017 Pre-Admit Pre-Admission Testing Earnest De La Cruz MD Preoperative testing Testing (Primary Dx) Appointment 01/07/2017 [facility] Radiology Earnest De La Cruz MD PVD ( peripheral vascular Encounter disease); Preop testing 01/07/2017 Ancillary Radiology Earnest De La Cruz MD PVD ( peripheral vascular Orders disease) 01/07/2017 Ancillary Access Earnest De La Cruz MD PVD (peripheral vascular Orders disease) 01/03/2017 [facility] Radiology Earnest De La Cruz MD [...] Taken Blood Pressure 133/61 02/10/2017 7:43 AM OPTOMETRIST ASSISTANT Pulse 79 02/10/2017 7:43 AM OPTOMETRIST ASSISTANT Temperature 36.6 C (97.8 F) 02/10/2017 7:43 AM OPTOMETRIST ASSISTANT Respiratory Rate 18 02/10/2017 7:43 AM OPTOMETRIST ASSISTANT Oxygen Saturation 93% 02/10/2017 7:43 AM OPTOMETRIST ASSISTANT Inhaled Oxygen - - Concentration Weight 56.1 kg (123 lb 11.2 oz) 02/07/2017 12:00 PM OPTOMETRIST ASSISTANT Height 167.6 cm (5' 6") 02/07/2017 6:52 AM OPTOMETRIST ASSISTANT Body Mass Index 19.97 02/07/2017 12:00 PM OPTOMETRIST ASSISTANT Plan of Treatment Health Maintenance Due Date Last Done Comments SHINGRIX VACCINE (#1) 1979 ZOSTER VACCINE 1989 PNEUMOCOCCAL 1994 POLYSACCHARIDE VACCINE AGE 65 AND OVER PNEUMOCOCCAL-13 1994 INFLUENZA VACCINE 10/08/2017 Implants Implanted Type Area Windows Technical Specialist Device Expiration Model / Identifier Date Serial / Lot Device Vasclr Clsr Baln Cath 10ml Cardiovasc N/A: N/A ACCESS CLOSURE 02/06/2018 [id number] / Lkng Syr 5fr Irizar[employer] / [id number] Implants Implanted: Qty: 1 on 04/29/2016 Device Vasclr Clsr Baln Cath 10ml Cardiovasc N/A: N/A ACCESS CLOSURE [id number] / Lkng Syr 5fr Irizar[employer] / [id number] Implants Implanted: 01/07/2017 (Quantity not on file) [facility] Vasc Periph [id number] - Vascular N/A: N/A BARD PERIPHERAL 2019 [id number] / [id number] Graft VASCULAR / Implanted: Qty: 1 on 02/07/2017 by [id number] Earnest De La Cruz MD [facility] Vas Carboflo Str [id number] - Vascular Left: BARD PERIPHERAL 2018 [id number] / [id number] Graft Artery, VASCULAR / Implanted: Qty: 1 on 02/07/2017 by Femoral [id number] Earnest De La Cruz MD Procedures Procedure Name Priority Date/Time Associated Diagnosis Comments SD AN ELECTIVE Routine 02/07/2017 ENDOTRACHEAL AIRWAY 11:20 AM OPTOMETRIST ASSISTANT Procedure Note - Demetris Cope CRNA - 02/07/2017 9:06 AM OPTOMETRIST ASSISTANT Airway Date/Time: 02/07/2017 8:29 AM Performed by: [...] intubation ARTERIAL LINE Routine 02/07/2017 10:40 AM OPTOMETRIST ASSISTANT Procedure Note - Demetris Cope CRNA - 02/07/2017 10:39 AM OPTOMETRIST ASSISTANT Arterial line Performed by: DEMETRIS COPE Authorized [...] CREATION, BYPASS, 02/07/2017 PVD ARTERIAL, 8:15 AM OPTOMETRIST ASSISTANT FEMORAL-POPLITEAL LEFT Special Needs Needs: CELL SAVER/ [...] and Americans. Specimen Performing Laboratory Plasma specimen [facility] DEPARTMENT OF PATHOLOGY AND GENOMIC MEDICINE [address] [place] [address] * CBC with platelet and differential (02/08/2017 [...] (promyelocytes, myelocytes, metamyelocytes) Specimen Performing Laboratory Blood [facility] OF PATHOLOGY AND [facility] [address] [place] [address] * Basic metabolic panel (02/08/2017 4:20 AM) [...] 10.2 mg/dL Specimen Performing Laboratory Plasma specimen [facility] DEPARTMENT OF PATHOLOGY AND [facility] [id number] [place] [address] [place] [address] * XR Ankle 3+ Vw Left (02/07/2017 9:09 PM) Specimen Performing Laboratory [facility] [address] [place] [address] Addenda Addendum by Mati Ferrari MD on 02/08/2017 5:15 PM ADDENDUM #1 Under impression, the first sentence should read:" The bones are moderately osteopenic" Narrative EXAMINATION:XR ANKLE 3VW LEFT CLINICAL HISTORY:ANKLE PAINNO XRAY COMPARISON:None. IMPRESSION: Lungs are moderately osteopenic. There is no evidence of fracture or dislocation. [id number] Procedure Note Interface, Radiology Results Incoming - 02/07/2017 9:16 PM OPTOMETRIST ASSISTANT EXAMINATION: XR ANKLE 3 VW LEFT CLINICAL HISTORY: ANKLE PAIN NO XRAY COMPARISON: None. IMPRESSION: Lungs are moderately osteopenic. There is no evidence of fracture or dislocation. [id number] * XR Chest 1 Vw Portable (02/07/2017 9:09 PM) Specimen Performing Laboratory [facility] [address] [place] [address] Narrative EXAMINATION:XR CHEST 1 VW PORTABLE CLINICAL HISTORY:COPD Emphysema COMPARISON:To previous study from 02/05/2017 IMPRESSION: The heart is normal in appearance and the lungs are hyperinflated without evidence of congestion or consolidation. Mild thoracal lumbar scoliosis is present. [id number] Procedure Note Interface, Radiology Results Incoming - 02/07/2017 9:14 PM OPTOMETRIST ASSISTANT EXAMINATION: XR CHEST 1 VW PORTABLE CLINICAL HISTORY: COPD Emphysema COMPARISON: To previous study from 02/05/2017 IMPRESSION: The heart is normal in appearance and the lungs are hyperinflated without evidence of congestion or consolidation. Mild thoracal lumbar scoliosis is present. [id number] * POC glucose (02/07/2017 8:29 PM) Component Value Ref Range POC glucose 181 (H) 65 - 99 mg/dL Comment: Meter ID: [id number] Payroll Consultant: Kareem Soria Specimen Performing Laboratory [facility] DEPARTMENT OF PATHOLOGY AND GENOMIC MEDICINE [id number] [place] [address] * OR [place] > I Hour (02/07/2017 10:45 AM) Specimen Performing Laboratory [address] [address] Narrative EXAMINATION:OR [place] 1 HOUR C-arm fluoroscopy was requested in OR.FLUORO TIME 0:36 IMPRESSION: Separate operative report will be issued by the physician performing the procedure. [id number] Procedure Note Interface, Radiology Results Incoming - 02/07/2017 11:37 AM OPTOMETRIST ASSISTANT EXAMINATION: OR [place] 1 HOUR C-arm fluoroscopy was requested in OR. FLUORO TIME 0:36 IMPRESSION: Separate operative report will be issued by the physician performing the procedure. [id number] * XR Chest 2 Vw (02/05/2017 8:10 AM) Only the most recent of 2 results within the time period is included. Specimen Performing Laboratory [facility] [address] [place] [address] Narrative EXAMINATION:XR CHEST 2 VW CLINICAL HISTORY:Z01.818 Encounter for other preprocedural examination, PREOP COMPARISON:January 03, 2017 FINDINGS: Heart size appears normal. The mediastinum is unremarkable. The lungs appear clear. There is mild scoliosis of the thoracic spine convex to the right. IMPRESSION: No acute findings are visualized [id number] Procedure Note Hm Interface, Radiology Results Incoming - 02/05/2017 8:48 AM OPTOMETRIST ASSISTANT EXAMINATION: XR CHEST 2 VW CLINICAL HISTORY: Z01.818 Encounter for other preprocedural examination, PREOP COMPARISON: January 03, 2017 FINDINGS: Heart size appears normal. The mediastinum is unremarkable. The lungs appear clear. There is mild scoliosis of the thoracic spine convex to the right. IMPRESSION: No acute findings are visualized [id number] * Partial thromboplastin time, activated (02/05/2017 7:09 AM) Only the most recent of 2 results within the time period is included. Component Value Ref Range PTT 38.3 (H) 23.0 - 36.0 sec Comment: PTT therapeutic range for unfractionated heparin is 61.0-112.0 seconds which corresponds to Anti-Xa 0.3-0.7 U/ml. Specimen Performing Laboratory Blood [facility] DEPARTMENT OF PATHOLOGY AND [facility] MEDICINE [address] [place] [address] [place] [address] * Prothrombin time with INR (02/05/2017 7:09 [...] vein thrombosis/pulmonary embolism. Specimen Performing Laboratory Blood [facility] DEPARTMENT OF PATHOLOGY AND GENOMIC MEDICINE [id number] [place] [address] [place] [address] * Type and screen (02/05/2017 7:09 AM) Only the most recent of 2 results within the time period is included. Component Value Ref Range ABO grouping O Rh type POS Antibody screen NEG Specimen Performing Laboratory Blood [facility] DEPARTMENT OF PATHOLOGY AND [facility] [id number] [place] [address] [place] [address] * IR Angiogram Extremity Left (01/07/2017 10:59 AM) Specimen Performing Laboratory [facility] [address] [place] [address] Narrative PROCEDURE:IR ANGIOGRAM EXTREMITY LEFT This exam [...] 10:59 AM) Specimen Performing Laboratory [facility] [address] [place] [address] Narrative PROCEDURE:US GUIDED VASCULAR ACCESS This exam [...] Range Ventricular rate 61 Atrial rate 61 SD interval 188 QRSD interval 90 QT interval 430 QTC interval 432 P axis 1 88 QRS axis 1 65 T wave axis 70 EKG impression Normal sinus rhythm-Normal ECG-In automated comparison with ECG of 26-APR-2016 17:15,-No significant change was found- Specimen Performing Laboratory [facility] [address] [place] [address] after 07/21/2016 Insurance Payer Benefit Subscriber ID Type Phone Address Plan / Group [employer] TEX[employer] xxxxxxxxx O [facility] Home: [id number] [place] [id number]
[2017-07-22 23:35] VITALS: BP 148/65
[2017-07-23] VITALS (9 sets, daily range): BP systolic 106–148; BP diastolic 51–65
[2017-07-23] MEDS: SODIUM CHLORIDE 0.9% 1000ML 1,000 ML IV SCH ×2 (06:24→15:00)
[2017-07-23 07:03] LABS: ALANINE AMINOTRANSFERASE 8 IU/L (0-55); ALBUMIN 2.2 g/dL (3.5-5.0); ALBUMIN/GLOBULIN RATIO 0.9 (0.8-2.0); ALKALINE PHOSPHATASE 78 IU/L (40-150); ANION GAP 10.2 mmol/L (8-16); BLOOD UREA NITROGEN 21 mg/dL (7-26); BUN/CREATININE RATIO 25 (6-25); CALCIUM 8.4 mg/dL (8.4-10.2); CARBON DIOXIDE 25 mmol/L (22-29); CHLORIDE 97 mmol/L (98-107); CREATININE, SERUM 0.83 mg/dL (0.57-1.11); EST GLOMERULAR FILTRATION RATE > 60 ML/MIN (60-); GLUCOSE 88 mg/dL (74-118); POTASSIUM 4.2 mmol/L (3.5-5.1); SODIUM 128 mmol/L (136-145)
[2017-07-23 08:33] LABS: BASOPHILS % 0.5 % (0.0-1.0); EOSINOPHILS # (AUTO) 0.1 (0.0-0.4); EOSINOPHILS % 1.7 % (0.0-6.0); HEMATOCRIT 29.2 % (34.2-44.1); HEMOGLOBIN 10.1 g/dL (12.0-16.0); LYMPHOCYTES # (AUTO) 0.8 (1.0-3.2); LYMPHOCYTES % 10.1 % (18.0-39.1); MEAN CORPUSCULAR HEMOGLOBIN 41.7 pg (28-32); MEAN CORPUSCULAR HGB CONC 34.6 g/dL (31-35); MEAN CORPUSCULAR VOLUME 120.7 fL (81-99); MONOCYTES # (AUTO) 0.8 (0.2-0.8); MONOCYTES % 10.2 % (4.4-11.3); NEUTROPHILS # (AUTO) 5.9 (2.1-6.9); NEUTROPHILS % 76.6 % (38.7-80.0); PLATELET COUNT 610 x10e3/uL (140-360); RED BLOOD COUNT 2.42 x10e6/uL (3.6-5.1)
[2017-07-23] MEDS ORDERED: FAMOTIDINE 20 MG/2 ML VIAL IV SCH (09:00)
[2017-07-23] MEDS ORDERED: TRAMADOL HCL 50 MG TAB PO PRN (09:15)
[2017-07-23] MEDS: METOPROLOL SUCCINATE 50 MG TAB XL PO SCH ×2 (10:10→17:46)
--- NOTE | 2017-07-23 10:47 | History and Physical ---
OBSERVATION NOTE OBSERVATION DATE: July 23, 2017 PCP: Dr. Pernell Painting CHIEF COMPLAINT: Urinary retention. HISTORY: This is an 87-year-old female with episodic urinary retention. Apparently she did not urinate for at least a day at the [facility], [facility] In the morning, the patient was supposed to have a Ambrocio catheter placed. However, during the day, per patient's daughter, that was not done. By 5 p.m. the patient was having severe pelvic pain and distention. Subsequently, the family requested the patient to go to the emergency room. In the emergency room, the patient had a Ambrocio catheter placed and approximately 2 liters of fluid obtained. The patient after that did better. Nausea and vomiting resolved. The pain subsequently resolved. IV fluids given. PAST MEDICAL HISTORY 1. Left foot chronic wound. 2. Chronic neuropathy. 3. Peripheral vascular disease. 4. Hypertension. 5. Major depression with suicidal ideation previously. 6. Progressive decline. PAST SURGICAL HISTORY: Multiple left foot surgeries. SOCIAL HISTORY: Patient does not smoke or use alcohol. She is at [facility] ALLERGIES: MULTIPLE, INCLUDING VANCOMYCIN, BACTRIM AND ERYTHROMYCIN-BASED ANTIBIOTICS. PHYSICAL EXAMINATION VITAL SIGNS: Temperature is 97. Blood pressure 122/57. Pulse rate 84. Respirations 18. GENERAL: The patient is not in acute distress. She is awake. HEENT: Normocephalic, atraumatic. Anicteric. NECK: Supple grossly. PULMONARY: Diminished breath sounds without any wheezing. CARDIOVASCULAR: S1 and S2. Regular rate and rhythm. ABDOMEN: Soft. EXTREMITIES: Left foot chronic wound. NEUROLOGIC: No focal deficit. LABORATORY: Sodium is 120, potassium 4.2, chloride 97, bicarb 25. BUN 21 and creatinine 0.8. Glucose 88. WBC 10.8, hemoglobin 13.5, hematocrit 38.3, platelets 903. IMPRESSION 1. Urinary retention, recurrent. 2. Multiple symptoms secondary to the above. PLAN: Continue with IV fluids and Ambrocio catheter. Discussed with the patient and family. The patient may benefit with more assistance through possible hospice palliative care at the [facility] to prevent this from happening. Job#: [id number]
[2017-07-24] VITALS: BP 121/60
[2017-07-24 04:00] VITALS: BP 133/63
[2017-07-24] MEDS: SODIUM CHLORIDE 0.9% 1000ML 1,000 ML IV SCH (04:01)
[2017-07-24] MEDS: BALSAM PERU/CASTOR OIL 60 GM OINT...G. TP SCH ×2 (05:29→10:28)
[2017-07-24 07:42] LABS: ANION GAP 9.8 mmol/L (8-16); BLOOD UREA NITROGEN 14 mg/dL (7-26); BUN/CREATININE RATIO 20 (6-25); CALCIUM 8.3 mg/dL (8.4-10.2); CARBON DIOXIDE 24 mmol/L (22-29); CHLORIDE 101 mmol/L (98-107); CREATININE, SERUM 0.71 mg/dL (0.57-1.11); EST GLOMERULAR FILTRATION RATE > 60 ML/MIN (60-); FOLATE 10.6 ng/mL (7.0-15.4); GLUCOSE 74 mg/dL (74-118); POTASSIUM 3.8 mmol/L (3.5-5.1); SODIUM 131 mmol/L (136-145)
[2017-07-24 08:00] VITALS: BP 124/53
[2017-07-24 08:04] LABS: THYROID STIMULATING HORMONE 2.401 uIU/mL (0.350-4.940)
[2017-07-24] MEDS ORDERED: HYDROXYUREA 500 MG CAPSULE PO SCH (09:00)
[2017-07-24] MEDS ORDERED: CLOPIDOGREL BISULFATE 75 MG TAB PO SCH (09:00)
[2017-07-24 09:45] VITALS: BP 124/53
[2017-07-24] MEDS: METOPROLOL SUCCINATE 50 MG TAB XL PO SCH ×2 (10:28→16:37)
[2017-07-24 12:00] VITALS: BP 110/53
[2017-07-24 16:00] VITALS: BP 113/56
[2017-07-25] MEDS ORDERED: BALSAM PERU/CASTOR OIL 60 GM OINT...G. TP SCH (09:00)
== END 2017-07-24 18:00 | disposition hospice, inpatient (51) | DRG 696 ==
LOC: ER 18:20 → ERHOLD 22:44 → MED/SURG3 22:51
PROVIDERS: ADMIT Internal Medicine; ATTEND Internal Medicine
CPT/HCPCS: 36415; 74176; 80048; 80053; 82607; 82746; 84443; 85025; 93005; 96361; J7030; J7050